=== PATIENT | female | born 1970 | race Caucasian/White ===

== ENCOUNTER 2019-06-11 19:29 | Inpatient (IN) | payer MEDICARE ==
[2019-06-11] MEDS ORDERED: HYDROMORPHONE HCL INJ/PF 2 MG/ML AMPULE IV ONE ×2 (20:15→21:19)
[2019-06-11] MEDS ORDERED: FAMOTIDINE INJ/PF 20 MG/2 ML SDV IV ONE (20:15)
[2019-06-11] MEDS ORDERED: METOCLOPRAMIDE HCL INJ/PF 10 MG/2 ML SDV IV ONE (20:15)
--- NOTE | 2019-06-11 20:21 | ER Document Report ---
ED General - General Chief Complaint: Abdominal Pain Stated Complaint: ABDOMINAL PAIN Time Seen by Provider: 06/11/19 19:58 Mode of Arrival: Medic Information source: Patient, Relative TRAVEL OUTSIDE OF THE [place] IN LAST 30 DAYS: No - HPI Notes: Patient is a 49-year-old female history of kidney transplant 2010, insulin- dependent diabetes, pancreatic cancer diagnosed 2 months ago currently has had 3 rounds of chemotherapy presents to the emergency department with report that she is on vacation coming down from the [place] and forgot her quick-acting oxycodone 30 mg that she usually takes 3 times a day and has had not had anything for 5 days. She is been taking her OxyContin 80 mg that she usually takes 3 times per day but only had one dose today. Other medications that she is on her Pancrease, tacrolimus, prednisone, insulin. The patient reports her abdominal pain worsened and she developed nausea and vomited x1 without diarrhea or hematemesis. She had a bowel movement earlier today which she states was normal. No dysuria. No fever or chest pain or cough or congestion. - Related Data Allergies/Adverse Reactions: No Known Allergies Allergy (Unverified 06/11/19 20:28) Past Medical History - General Information source: Patient, Relative - Social History Smoking Status: Unknown if Ever Smoked Frequency of alcohol use: None Drug Abuse: None Lives with: Family Family History: Reviewed & Not Pertinent Review of Systems - Review of Systems -: Yes All other systems reviewed and negative Physical Exam - Vital signs Vitals: Temp Pulse Resp BP Pulse Ox 98.7 F 94 16 200/83 H 100 06/11/19 19:48 06/11/19 19:48 06/11/19 19:48 06/11/19 19:48 06/11/19 19:48 - Notes Notes: PHYSICAL EXAMINATION: GENERAL: Well-appearing, well-nourished and in obvious discomfort. HEAD: Atraumatic, normocephalic. EYES: Opacified bilat eye legally blind., extraocular movements intact, conjunctiva are normal. ENT: Nares patent, oropharynx clear without exudates. Moist mucous membranes. NECK: Normal range of motion, supple without lymphadenopathy. No meningismus. LUNGS: Breath sounds clear to auscultation bilaterally and equal. No wheezes rales or rhonchi. HEART: Regular rate and rhythm without murmurs ABDOMEN: Soft, nondistended abdomen. No guarding, no rebound. No masses appreciated. Diffusely tender throughout the abdomen more supraumbilical region. No pulsatile mass. No obvious hepatosplenomegaly. Female : deferred Musculoskeletal: Normal range of motion, no pitting or edema. No cyanosis. Patient is status post right BKA. NEUROLOGICAL: Cranial nerves grossly intact. Normal speech, normal gait. Normal sensory, motor exams. Alert and oriented x 3 PSYCH: Normal mood, normal affect. SKIN: Warm, Dry, normal turgor, no rashes or lesions noted. Patient has minimal stage I/II skin breakdown distal aspect of the right BKA region without evidence for infection. She states she has been watching this area which came about related to her weight loss and using her prosthetic limb. No evidence for abscess or cellulitis. Course - Re-evaluation Re-evalutation: 06/11/19 20:20 Patient had received Zofran in route by EMS and had a EKG as interpreted by me showed no evidence for acute ischemia and was normal sinus rhythm heart rate of 90. The patient was given IV Dilaudid and Pepcid. 06/12/19 01:51 Patient remained alert and and interactive and requested something additional for pain. Patient was given additional dose of Dilaudid and was given Reglan for nausea. Immediately after the Reglan, she could not hold still and was dystonic and required restraint. Repeat blood sugar was normal. The patient was given Benadryl IM with some improvement although she still remains somewhat altered. CT scan of the head was ordered. Repeat exam showed her moving all 4 extremities, but she would not consistently follow commands. Patient was given ketamine total of 50 mg for sedation so that she would hold still appropriately for the CT scan. Wet read as interpreted by myself showed no evidence for intracranial hemorrhage. Repeat exam showed patient without dystonia obviously and the patient would respond to verbal stimuli, but was still somnolent and confused. Restraints are being removed. Lactic acid was normal. White blood cell count is elevated, which may be related to patient's chronic steroid use versus her vomiting versus reaction from patient's chemotherapy. Repeat temperatures were normal repeat blood sugar was in the 300s. Patient had mild hyperkalemia with potassium 5.5 with mild ketones in the urine and was given normal saline 1 L. 06/12/19 03:26 Patient was given Valium IV and Cogentin with some further improvement in her dystonia, but she was still somnolent. Repeat blood sugar was 490 and patient was given regular insulin 20 units subcutaneous. Discussion was undertaken with the patient's family and they were in agreement with the patient being watched further with repeat lab work and evaluation. Head CT was negative for acute process and CT scan of the abdomen showed pancreatic cancer findings, which is known history. Discussion was undertaken with Dr. Danielle, Hospitalist, who agreed to admit the patient for further evaluation and care. 06/12/19 04:29 It is again notable that the patient's long-acting oxycodone is usually 240 mg/day where her short acting oxycodone is 90 mg/day. Today she is only had 80 mg of the long-acting oxycodone. 06/12/19 04:32 - Vital Signs Vital signs: Temp Pulse Resp BP Pulse Ox 97.6 F 106 H 20 186/86 H 99 06/12/19 01:30 06/12/19 02:46 06/12/19 02:46 06/12/19 02:46 06/12/19 02:46 - Laboratory Result Diagrams: 06/11/19 19:20 06/11/19 19:20 Laboratory results interpreted by me: 06/11/19 06/11/19 06/11/19 19:20 19:20 20:15 WBC 26.3 H Hgb 10.7 L Hct 33.5 L MCHC 31.8 L RDW 17.2 H Plt Count 505 H Seg Neuts % (Manual) 92 H Lymphocytes % (Manual) 3 L Abs Neuts (Manual) 24.2 H Sodium 136.3 L Potassium 5.5 H BUN 27 H Creatinine 1.38 H Est GFR ( Amer) 49 L Est GFR (MDRD) Non-Af 40 L Glucose 371 H POC Glucose Direct Bilirubin 0.6 H Alkaline Phosphatase 138 H Ammonia Lipase < 10.0 L Urine Protein 100 H Urine Glucose (UA) >=500 H Urine Ketones TRACE H 06/11/19 06/12/19 22:18 02:40 WBC Hgb Hct MCHC RDW Plt Count Seg Neuts % (Manual) Lymphocytes % (Manual) Abs Neuts (Manual) Sodium Potassium BUN Creatinine Est GFR ( Amer) Est GFR (MDRD) Non-Af Glucose POC Glucose 365 H Direct Bilirubin Alkaline Phosphatase Ammonia < 8.7 L Lipase Urine Protein Urine Glucose (UA) Urine Ketones Critical Care Note - Critical Care Note Total time excluding time spent on procedures (mins): 48 Discharge - Discharge Clinical Impression: Dystonic drug reaction, Narcotic withdrawal, Dehydration, Hyperkalemia, Hyperglycemia Pancreatic cancer Qualifiers: Pancreatic malignancy location: unspecified Qualified Code(s): C25.9 - Malign ant neoplasm of pancreas, unspecified Vomiting Qualifiers: Vomiting type: unspecified Vomiting Intractability: non-intractable Nausea presence: with nausea Qualified Code(s): R11.2 - Nausea with vomiting, unspecified Condition: Fair Disposition: ADMITTED INPATIENT Admitting Provider: Shashi (Hospitalist) Unit Admitted: [facility]
[2019-06-11 20:40] LABS: APPEARANCE,URINE CLEAR; BILIRUBIN,URINE NEGATIVE (NEGATIVE); COLOR,URINE STRAW; GLUCOSE, URINE >=500 mg/dL (NEGATIVE); KETONES,URINE TRACE mg/dL (NEGATIVE); LEUKOCYTE ESTERASE,URINE NEGATIVE (NEGATIVE); NITRITE,URINE NEGATIVE (NEGATIVE); PROTEIN,URINE 100 mg/dL (NEGATIVE); UROBILINOGEN,URINE NEGATIVE mg/dL (<2.0)
[2019-06-11 20:48] LABS: HEMATOCRIT 33.5 % (36.0-47.0); HEMOGLOBIN 10.7 g/dL (12.0-15.5); MEAN CORPUSCULAR HEMOGLOBIN 27.3 pg (27.0-33.4); MEAN CORPUSCULAR HGB CONC 31.8 g/dL (32.0-36.0); MEAN CORPUSCULAR VOLUME 86 fl (80-97); PLATELET COUNT 505 10^3/uL (150-450); RED CELL DISTRIBUTION WIDTH 17.2 % (11.5-14.0); WHITE BLOOD COUNT 26.3 10^3/uL (4.0-10.5)
[2019-06-11 20:52] LABS: ALBUMIN 4.3 g/dL (3.5-5.0); ALKALINE PHOSPHATASE 138 U/L (38-126); ANION GAP 13 (5-19); ASPARTATE AMINO TRANSFERASE 14 U/L (14-36); BILIRUBIN,DIRECT 0.6 mg/dL (0.0-0.4); BILIRUBIN,TOTAL 0.7 mg/dL (0.2-1.3); BLOOD UREA NITROGEN 27 mg/dL (7-20); CALCIUM 9.7 mg/dL (8.4-10.2); CARBON DIOXIDE 23 mmol/L (22-30); CHLORIDE 100 mmol/L (98-107); GLUCOSE 371 mg/dL (75-110); POTASSIUM 5.5 mmol/L (3.6-5.0); TOTAL PROTEIN 7.9 g/dL (6.3-8.2)
[2019-06-11 21:17] LABS: ABSOLUTE LYMPHOCYTES# (MANUAL) 0.8 10^3/uL (0.5-4.7); ABSOLUTE MONOCYTES # (MANUAL) 1.3 10^3/uL (0.1-1.4); BASOPHILS % (MANUAL) 0 % (0-2); EOSINOPHILS % (MANUAL) 0 % (0-6); LYMPHOCYTES % (MANUAL) 3 % (13-45); MONOCYTES % (MANUAL) 5 % (3-13); SEGMENTED NEUTROPHILS % (MAN) 92 % (42-78); TOTAL CELLS COUNTED 100
[2019-06-11] MEDS ORDERED: NORMAL SALINE 1000 ML 1,000 ML IV ONE (21:17)
[2019-06-11 21:19] LABS: ANISOCYTOSIS 1+; OVALOCYTES SLIGHT; PLATELET COMMENT INCREASED; POIKILOCYTOSIS SLIGHT; SCHISTOCYTES SLIGHT
[2019-06-11] MEDS ORDERED: LORAZEPAM INJ 2 MG/1 ML VIAL IV ONE (21:19)
[2019-06-11] MEDS ORDERED: DIPHENHYDRAMINE HCL 50 MG/ML VIAL IM ONE (23:24)
[2019-06-11] MEDS ORDERED: DIPHENHYDRAMINE HCL 50 MG/ML VIAL ONE (23:25)
[2019-06-12] MEDS ORDERED: KETAMINE HCL INJ 500 MG/10 ML VIAL IV ONE ×2 (01:49→02:26)
[2019-06-12] MEDS ORDERED: KETAMINE HCL INJ 500 MG/10 ML VIAL ONE (02:23)
--- NOTE | 2019-06-12 02:56 | RADIOLOGY REPORT (SQ) ---
EXAM DESCRIPTION: RadLex: CT HEAD WITHOUT IV CONTRAST CLINICAL HISTORY: 49 years Female; altered mental state TECHNIQUE: Noncontrast CT head. All CT scans at this facility use dose modulation, iterative reconstruction, and/or weight based dosing when appropriate to reduce radiation dose to as low as reasonably achievable. COMPARISON: None. FINDINGS: No acute hemorrhage or mass effect. A calcified lesion extends along the posterior aspect of the cribriform plate, extending over the pituitary fossa. Estimated size is 2.4 cm AP by 1.7 cm LR by 0.9 cm SI. Vascular calcifications are seen along the distal internal carotid arteries bilaterally. Large coarse calcifications are seen in both globes. No acute retro-orbital edema. Visualized portions of paranasal sinuses and mastoids are clear. Visualized portions of the calvarium are within normal limits. IMPRESSION: 1. No acute hemorrhage or mass effect. 2. Calcified lesion extending from the cribriform plate over the pituitary fossa. This is likely a calcified meningioma. Based on location could potentially affect pituitary function. MRI brain with and without contrast using pituitary protocol would provide better evaluation of this lesion and any potential mass effect on the pituitary stalk/gland. 3. Atherosclerotic plaque in the distal internal carotid arteries bilaterally 4. Coarse calcifications in both globes.
--- NOTE | 2019-06-12 03:15 | RADIOLOGY REPORT (SQ) ---
EXAM DESCRIPTION: CT ABDOMEN PELVIS WITHOUT IV CONTRAST COMPLETED DATE/TME: 06/12/2019 00:00 CLINICAL HISTORY: 49 years, Female, abd pain, hx renal transplant and pancreatic cancer COMPARISON: None. TECHNIQUE: Axial CT images of the abdomen and pelvis were obtained without contrast. Sagittal and coronal reformats were performed. DLP 608 Images stored on PACS. All CT scanners at this facility use dose modulation, iterative reconstruction, and/or weight based dosing when appropriate to reduce radiation dose to as low as reasonably achievable (ALARA). [facility]: Dose Right [facility]: CareDose [facility]: Dose Right [facility]: Teradose 4D [facility]: Smart Retrace LIMITATIONS: None. FINDINGS: The lung bases are clear. The liver appears unremarkable. The gallbladder appears distended. There is fullness along the pancreatic head and body with minimal adjacent stranding, consistent with the patient's known history of malignancy. The pancreatic tail appears atrophic. The spleen and adrenal glands appear unremarkable. Both [place] kidneys appear atrophic with vascular calcifications. There is no hydronephrosis. The transplant kidney is in the right lower quadrant. There is no perinephric fluid collection or hydronephrosis. There are atherosclerotic calcific effusions of the abdominal aorta without evidence of aneurysm. There is a small amount of free fluid within the pelvis. There is no free air. The stomach and small bowel appear unremarkable. The appendix is normal. There is a large amount of stool within the colon. The urinary bladder and uterus appear unremarkable. No pathologically enlarged lymph nodes are detected on this noncontrast exam. There are prominent subcentimeter lymph nodes along the upper abdomen. IMPRESSION: Fullness of the pancreatic head and body with minimal adjacent stranding, likely related to the patient's known history of pancreatic malignancy. Pancreatitis may be present. Recommend correlation with amylase and lipase. Mildly distended gallbladder. If there is concern for acute cholecystitis, an ultrasound may be useful in further evaluation. Right lower quadrant transplant kidney with no perinephric fluid collection or hydronephrosis. TECHNICAL DOCUMENTATION: Quality ID # 436: Final reports with documentation of one or more dose reduction techniques (e.g., Automated exposure control, adjustment of the mA and/or kV according to patient size, use of iterative reconstruction technique) copyright 2011 [employer] All Rights Reserved
[2019-06-12] MEDS ORDERED: INSULIN REG, HUMAN 100 UNIT/ML 3 ML VIAL (PYX) SUBCUT ONE (04:00)
[2019-06-12] MEDS ORDERED: DIAZEPAM INJ 10 MG/2 ML DISP.SYRIN IV ONE (04:00)
[2019-06-12] MEDS ORDERED: BENZTROPINE MESYLATE INJ 2 MG/2 ML AMPULE IV ONE (04:10)
[2019-06-12] MEDS ORDERED: MAG HYDROX/AL HYDROX/SIMETH SUSP 30 ML UDCUP PO PRN (04:44)
[2019-06-12] MEDS ORDERED: NORMAL SALINE 1000 ML 1,000 ML IV PRN (04:44)
[2019-06-12] MEDS ORDERED: ONDANSETRON HCL INJ/PF 4 MG/2 ML SDV IV PRN (04:44)
[2019-06-12] MEDS ORDERED: MAGNESIUM HYDROXIDE SUSP 30 ML UDCUP PO PRN (04:44)
[2019-06-12] MEDS ORDERED: GLUCAGON,HUMAN RECOMB 1 MG INJ IM PRN (04:52)
[2019-06-12] MEDS ORDERED: DEXTROSE 40% GEL 15 GM TUBE PO PRN ×2 (04:52)
[2019-06-12] MEDS ORDERED: ACETAMINOPHEN 325 MG TABLET PO PRN (04:52)
[2019-06-12] MEDS ORDERED: DEXTROSE 50%-WATER 25 GM/50 ML DISP.SYRIN IV PRN ×2 (04:52)
--- NOTE | 2019-06-12 05:57 | PDOC H&P ---
History of Present Illness Admission Date/PCP: 06/12/2019 04:31 No local PCP Patient complains of: Abdominal pain History of Present Illness: NISHA CLARKE is a 49 year old female who presented to the emergency room with acutely worsening abdominal pain. Patient admits having chronic abdominal pain secondary to pancreatic cancer which was diagnosed 2 months ago. Her pain has worsened acutely since leaving her home in the [place] and coming to the [place] area on vacation and forgetting her short acting pain medication at home. She normally takes OxyContin 80 mg 3 times daily and oxycodone IR 30 mg 3 times a day but she has had no IR formulation available to her for the last 5 days and only took 1 dose of her OxyContin yesterday. Therefore yesterday afternoon she developed gradually worsening abdominal pain and nausea with vomiting x1. She describes the pain as a severe, constant deep gripping/aching upper abdominal pain radiating through to her back. With these symptoms she presented to the emergency room for evaluation and treatment. In the emergency room patient was treated with IV fluid and was given Dilaudid as well as Zofran for pain and nausea. She responded well to treatment initially but over time asked for more pain medication. She was given another dose of Dilaudid but was given Reglan 5 mg IV instead of Zofran. Within a few minutes of receiving Reg vanessa she developed a dystonic reaction and has not recovered from the dystonic reaction since that time although it was slightly improved by the administration of Benadryl. Her ER evaluation revealed a mildly elevated serum potassium, hyperglycemia mildly elevated renal functions. Because the patient has not responded well to attempts at resolving her dystonic reaction the hospital service is been asked to admit patient for further treatment. Past Medical History Past Medical History: Due to patient's dystonic reaction information was obtained from her relatives who accompanied her. 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 Denies: Nose - Allergic rhinitis Neurological Medical History: Denies: Hemorrhagic CVA, Ischemic CVA, Seizures Endocrine Medical History: Reports: Diabetes Mellitus Type 2 Denies: Diabetes Mellitus Type 1, Hyperthyroidism, Hypothyroidism Renal/ Medical History: Denies: Chronic Kidney Disease, Nephrolithiasis Malignancy Medical History: Reports: Pancreatic Cancer GI Medical History: Denies: Cirrhosis, Crohn's Disease, Hepatitis, Ulcerative Colitis Musculoskeltal Medical History: Denies: Arthritis, Fibromyalgia Skin Medical History: Denies: Eczema, Psoriasis Psychiatric Medical History: Reports: Tobacco Dependency Denies: Alcohol Dependency, Substance Abuse Traumatic Medical History: Reports: None Hematology: Denies: Anemia, Bleeding Tendencies Infectious Medical History: Reports: None Past Surgical History Past Surgical History: Reports: 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 ABSE NT: constipation, diarrhea Genitourinary: ABSENT: dysuria, hematuria Musculoskeletal: ABSENT: back pain, joint swelling Integumentary: ABSENT: pruritus, rash Neurological: ABSENT: confusion, convulsions, focal weakness, memory loss, syncope Psychiatric: ABSENT: anxiety, depression Endocrine: ABSENT: cold intolerance, heat intolerance Hematologic/Lymphatic: ABSENT: easy bleeding, easy bruising Allergic/Immunologic: ABSENT: seasonal rhinorrhea Physical Exam Vital Signs: Temp Pulse Resp BP Pulse Ox 97.6 F 106 H 20 186/86 H 99 06/12/19 01:30 06/12/19 02:46 06/12/19 02:46 06/12/19 02:46 06/12/19 02:46 Intake & Output 06/10/19 06/11/19 06/12/19 23:59 23:59 23:59 Weight 66.8 kg General appearance: PRESENT: mild distress - Secondary to dystonia, other - Dystonic movements noted Head exam: PRESENT: atraumatic, normocephalic, other - Hair loss consistent with recent chemotherapy Eye exam: PRESENT: conjunctiva pink. ABSENT: conjunctival injection, scleral icterus Ear exam: PRESENT: normal external ear exam. ABSENT: bleeding, drainage Mouth exam: PRESENT: dry mucosa, neck supple Neck exam: ABSENT: thyromegaly, tracheal deviation Respiratory exam: PRESENT: clear to auscultation cecile, symmetrical, unlabored Cardiovascular exam: PRESENT: RRR. ABSENT: clicks, gallop, rubs Pulses: PRESENT: normal carotid pulses, normal radial pulses Vascular exam: PRESENT: normal capillary refill, pallor - Mild pallor noted GI/Abdominal exam: PRESENT: normal bowel sounds, soft Rectal exam: PRESENT: deferred Extremities exam: ABSENT: joint swelling, pedal edema Musculoskeletal exam: ABSENT: deformity, dislocation Neurological exam: PRESENT: altered - Not verbally responsive, does not follow commands, other - Dystonic movements noted Psychiatric exam: PRESENT: agitated, other - Dystonic movements and reaction Skin exam: PRESENT: dry, intact, warm. ABSENT: jaundice, rash, urticaria Results Laboratory Results: 06/11/19 19:20 06/11/19 19:20 06/11/19 06/11/19 06/11/19 19:20 19:20 19:20 WBC 26.3 H RBC 3.90 Hgb 10.7 L Hct 33.5 L MCV 86 MCH 27.3 MCHC 31.8 L RDW 17.2 H Plt Count 505 H Seg Neutrophils % Not Reportable Sodium 136.3 L Potassium 5.5 H Chloride 100 Carbon Dioxide 23 Anion Gap 13 BUN 27 H Creatinine 1.38 H Est GFR ( Amer) 49 L Glucose 371 H Lactic Acid Calcium 9.7 Total Bilirubin 0.7 AST 14 Alkaline Phosphatase 138 H Ammonia Total Protein 7.9 Albumin 4.3 Amylase 48 Lipase < 10.0 L Urine Color Urine Appearance Urine pH Ur Specific [place] Urine Protein Urine Glucose (UA) Urine Ketones Urine Blood Urine Nitrite Ur Leukocyte Esterase Urine WBC (Auto) Urine RBC (Auto) 06/11/19 06/11/19 06/12/19 20:15 22:21 02:40 WBC RBC Hgb Hct MCV MCH MCHC RDW Plt Count Seg Neutrophils % Sodium Potassium Chloride Carbon Dioxide Anion Gap BUN Creatinine Est GFR ( Amer) Glucose Lactic Acid 1.1 Calcium Total Bilirubin AST Alkaline Phosphatase Ammonia < 8.7 L Total Protein Albumin Amylase Lipase Urine Color STRAW Urine Appearance CLEAR Urine pH 6.0 Ur Specific [place] 1.010 Urine Protein 100 H Urine Glucose (UA) >=500 H Urine Ketones TRACE H Urine Blood NEGATIVE Urine Nitrite NEGATIVE Ur Leukocyte Esterase NEGATIVE Urine WBC (Auto) 1 Urine RBC (Auto) 2 Impressions: Abdomen/Pelvis CT 06/12/19 00:00 IMPRESSION: Fullness of the pancreatic head and body with minimal adjacent stranding, likely related to the patient's known history of pancreatic malignancy. Pancreatitis may be present. Recommend correlation with amylase and lipase. Mildly distended gallbladder. If there is concern for acute cholecystitis, an ultrasound may be useful in further evaluation. Right lower quadrant transplant kidney with no perinephric fluid collection or hydronephrosis. TECHNICAL DOCUMENTATION: Quality ID # 436: Final reports with documentation of one or more dose reduction techniques (e.g., Automated exposure control, adjustment of the mA and/or kV according to patient size, use of iterative reconstruction technique) copyright 2011 [employer]- All Rights Reserved Head CT 06/12/19 01:50 IMPRESSION: 1. No acute hemorrhage or mass effect. 2. Calcified lesion extending from the cribriform plate over the pituitary fossa. This is likely a calcified meningioma. Based on location could potentially affect pituitary function. MRI brain with and without contrast using pituitary protocol would provide better evaluation of this lesion and any potential mass effect on the pituitary stalk/gland. 3. Atherosclerotic plaque in the distal internal carotid arteries bilaterally 4. Coarse calcifications in both globes. Assessment and Plan - Diagnosis (1) Dystonic drug reaction Is this a current diagnosis for this admission?: Yes Plan: Patient's dystonic reaction will be treated with Cogentin and IV fluids with observation on IMCU. (2) Renal insufficiency Is this a current diagnosis for this admission?: Yes Plan: Patient's renal insufficiency will be treated with IV fluids and observation of her repeat metabolic profile. (3) Abdominal pain Qualifiers: Abdominal location: upper abdomen, unspecified Qualified Code(s): R10.10 - Upper abdominal pain, unspecified Is this a current diagnosis for this admission?: Yes Plan: Patient's abdominal pain will be treated with IV Dilaudid 0.5 to 4 mg every 2 hours on a as needed basis using a sliding pain scale. Patient can be converted back to oral therapy when she is fully awake and alert prior to discharge. (4) Nausea and vomiting Qualifiers: Vomiting type: unspecified Vomiting Intractability: non-intractable Qualified Code(s): R11.2 - Nausea with vomiting, unspecified Is this a current diagnosis for this admission?: Yes Plan: Patient's nausea and vomiting be treated with Zofran 8 mg IV every 6 hours on a as needed basis. For the use of Reglan other similar agents (Compazine) should be avoided. (5) Diabetes type 2, uncontrolled Qualifiers: Glycemic state: with hyperglycemia Qualified Code(s): E11.65 - Type 2 diabetes mellitus with hyperglycemia Is this a current diagnosis for this admission?: Yes Plan: Patient's diabetes will be treated with before meals and at bedtime Accu-Cheks and a sliding scale insulin schedule for hyperglycemia and a hypoglycemic protocol as needed. She can be returned to her usual therapeutic regiment as soon as she is able to be fully awake and alert and take an oral diet. (6) Hyperkalemia Is this a current diagnosis for this admission?: Yes Plan: Patient's hyperkalemia has been treated with IV fluids and will be observed with a repeat metabolic profile. Further intervention will be undertaken as required. - Time Time Spent with patient: 25-34 minutes Anticipated discharge: Home - Inpatient Certification Based on my medical assessment, after consideration of the patient's comorbidities, presenting symptoms, or acuity I expect that the services needed warrant INPATIENT care.: No I certify that my determination is in accordance with my understanding of Medicare's requirements for reasonable and necessary INPATIENT services [42 CFR 412.3e].: No Medical Necessity: Need Close Monitoring Due to Risk of Patient Decompensation, Need For IV Fluids, Need For Continuous Telemetry Monitoring, Need for Neurological Checks, Need for Pain Control, Risk of Complication if Not Cared For in Hospital
[2019-06-12] MEDS ORDERED: NICOTINE 21 MG/24 HR PATCH.TD24 TD PRN (06:17)
[2019-06-12] MEDS: HEPARIN SOD (PORCINE) 5,000 UNIT/ML 1 ML VIAL SUBCUT SCH ×3 (08:48→22:22)
[2019-06-12] MEDS ORDERED: HYDRALAZINE HCL INJ/PF 20 MG/1 ML SDV IV PRN (08:59)
[2019-06-12] MEDS ORDERED: DIPHENHYDRAMINE HCL 50 MG/ML VIAL IV ONE ×2 (09:33→18:45)
[2019-06-12] MEDS ORDERED: NORMAL SALINE 1000 ML 1,000 ML IV ONE (09:34)
[2019-06-12 10:05] LABS: ANION GAP 17 (5-19); BLOOD UREA NITROGEN 27 mg/dL (7-20); CARBON DIOXIDE 18 mmol/L (22-30); CHLORIDE 107 mmol/L (98-107); GLUCOSE 259 mg/dL (75-110); POTASSIUM 4.7 mmol/L (3.6-5.0)
[2019-06-12] MEDS: BENZTROPINE MESYLATE 1 MG TABLET PO SCH ×2 (10:57→17:42)
[2019-06-12] MEDS: DOCUSATE SODIUM 100 MG CAPSULE PO SCH ×2 (10:58→17:42)
[2019-06-12] MEDS: FAMOTIDINE 20 MG TABLET PO SCH ×2 (10:58→22:10)
[2019-06-12] MEDS: NORMAL SALINE 1000 ML 1,000 ML IV PRN ×2 (13:24→18:47)
[2019-06-12] MEDS ORDERED: OXYCODONE HCL 30 MG PO PRN (15:23)
[2019-06-12] MEDS ORDERED: OXYCODONE HCL 80 MG PO PRN (15:23)
[2019-06-12] MEDS ORDERED: (PENDING PHARMACY ID) (Oxycodone Hcl [Oxycodone Hcl] 30 MG) PO PRN (15:59)
[2019-06-12] MEDS ORDERED: AMYLASE PO SCH (16:00)
[2019-06-12] MEDS ORDERED: LIPASE PO SCH (16:00)
[2019-06-12] MEDS ORDERED: MORPHINE SULFATE 10 MG/ML INJ IV ONE (16:00)
[2019-06-12] MEDS ORDERED: BENZTROPINE MESYLATE INJ 2 MG/2 ML AMPULE IM ONE (16:00)
[2019-06-12] MEDS ORDERED: PROTEASE PO SCH (16:00)
[2019-06-12] MEDS ORDERED: OXYCODONE HCL IR 5 MG TABLET PO PRN (16:01)
--- NOTE | 2019-06-12 17:42 | PDOC CONSULTATION ---
Consultation Consult Date: 06/12/19 Attending physician:: LANNY MCCARTHY Provider Consulted: FLORENCIA STARKS Consult reason:: Pancreatic cancer History of Present Illness Admission Date/PCP: 06/12/19 13:17 Patient complains of: Pancreatic cancer History of Present Illness: NISHA CLARKE is a 49 year old female with known history of pancreatic cancer, all the history was obtained from notes or from nursing information because unfortunately patient is completely confused and noncommunicative, and family is not at bedside. She apparently just traveled down with her daughter here on a bus from [facility]. She was previously on chemotherapy but decided to stop all therapy because of side effects. She does have history of pancreatic cancer probably pancreatic head carcinoma. Recent CT imaging shows just that. Apparently she was coming to visit family here. She apparently ran out of medication and was in severe pain came to the ED and got several different medications including Reglan, and ultimately had some dysarthria as after that, and over the last 24 hours seems to have been very confused, she has restraints currently, and has a sitter. Per nursing she has not had any appropriate conversation and seems agitated. 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 Denies: Nose - Allergic rhinitis Neurological Medical History: Denies: Hemorrhagic CVA, Ischemic CVA, Seizures Endocrine Medical History: Reports: Diabetes Mellitus Type 2 Denies: Diabetes Mellitus Type 1, Hyperthyroidism, Hypothyroidism Renal/ Medical History: Denies: Chronic Kidney Disease, Nephrolithiasis Malignancy Medical History: Reports: Pancreatic Cancer GI Medical History: Denies: Cirrhosis, Crohn's Disease, Hepatitis, Ulcerative Colitis Musculoskeltal Medical History: Denies: Arthritis, Fibromyalgia Skin Medical History: Denies: Eczema, Psoriasis Psychiatric Medical History: Reports: Tobacco Dependency Denies: Alcohol Dependency, Substance Abuse Traumatic Medical History: Reports: None Hematology: Denies: Anemia, Bleeding Tendencies Infectious Medical History: Reports: None Past Surgical History Past Surgical History: Reports: 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 denies: CAD Parental Family History Reviewed: Yes Children Family History Reviewed: Yes Sibling(s) Family History Reviewed.: Yes Medication/Allergy Home Medications: Aspirin [Adult Low Dose Aspirin EC] 81 mg PO QHS 06/12/19 Lipase/Protease/Amylase [Creon Dr 36,000 Units Capsule] 1 each PO AC 06/12/19 Oxycodone HCl 30 mg PO Q4HP PRN 06/12/19 Oxycodone HCl [Oxycontin] 80 mg PO Q8 06/12/19 Pantoprazole Sodium [Protonix [address] Tablet] 40 mg PO DAILY 06/12/19 Prednisone [Deltasone 5 mg Tablet] 5 mg PO QAM 06/12/19 Pregabalin [Lyrica 25 Mg Capsule] 25 mg PO Q12 06/12/19 Sennosides [Senna] 8.6 mg PO DAILY 06/12/19 Tacrolimus [Prograf] 3 mg PO Q12 06/12/19 Allergies/Adverse Reactions: metoclopramide [From Reglan] Allergy (Severe, Verified 06/12/19 04:30) Abnormal behavior Review of Systems ROS unobtainable: Due to mental status Physical Exam Vital Signs: Temp Pulse Resp BP Pulse Ox 98.0 F 103 H 16 179/73 H 100 06/12/19 11:50 06/12/19 11:50 06/12/19 11:50 06/12/19 11:50 06/12/19 11:50 Intake & Output 06/11/19 06/12/19 06/13/19 06:59 06:59 06:59 Intake Total 267 1000 Balance 267 1000 Weight 67.1 kg General appearance: PRESENT: disheveled Mouth exam: PRESENT: dry mucosa Respiratory exam: PRESENT: clear to auscultation cecile. ABSENT: rales, rhonchi, wheezes Cardiovascular exam: PRESENT: RRR. ABSENT: diastolic murmur, rubs, systolic murmur GI/Abdominal exam: PRESENT: normal bowel sounds, soft. ABSENT: distended, guarding, mass, organolmegaly, rebound, tenderness Rectal exam: PRESENT: deferred Neurological exam: PRESENT: altered Psychiatric exam: PRESENT: agitated Results Laboratory Results: 06/11/19 19:20 06/12/19 07:25 06/11/19 06/11/19 06/11/19 19:20 19:20 19:20 WBC 26.3 H RBC 3.90 Hgb 10.7 L Hct 33.5 L MCV 86 MCH 27.3 MCHC 31.8 L RDW 17.2 H Plt Count 505 H Seg Neutrophils % Not Reportable Sodium 136.3 L Potassium 5.5 H Chloride 100 Carbon Dioxide 23 Anion Gap 13 BUN 27 H Creatinine 1.38 H Est GFR ( Amer) 49 L Glucose 371 H Lactic Acid Calcium 9.7 Total Bilirubin 0.7 AST 14 Alkaline Phosphatase 138 H Ammonia Total Protein 7.9 Albumin 4.3 Amylase 48 Lipase < 10.0 L Urine Color Urine Appearance Urine pH Ur Specific Garita Urine Protein Urine Glucose (UA) Urine Ketones Urine Blood Urine Nitrite Ur Leukocyte Esterase Urine WBC (Auto) Urine RBC (Auto) 06/11/19 06/11/19 06/12/19 20:15 22:21 02:40 WBC RBC Hgb Hct MCV MCH MCHC RDW Plt Count Seg Neutrophils % Sodium Potassium Chloride Carbon Dioxide Anion Gap BUN Creatinine Est GFR ( Amer) Glucose Lactic Acid 1.1 Calcium Total Bilirubin AST Alkaline Phosphatase Ammonia < 8.7 L Total Protein Albumin Amylase Lipase Urine Color STRAW Urine Appearance CLEAR Urine pH 6.0 Ur Specific Garita 1.010 Urine Protein 100 H Urine Glucose (UA) >=500 H Urine Ketones TRACE H Urine Blood NEGATIVE Urine Nitrite NEGATIVE Ur Leukocyte Esterase NEGATIVE Urine WBC (Auto) 1 Urine RBC (Auto) 2 06/12/19 07:25 WBC RBC Hgb Hct MCV MCH MCHC RDW Plt Count Seg Neutrophils % Sodium 141.7 Potassium 4.7 Chloride 107 Carbon Dioxide 18 L Anion Gap 17 BUN 27 H Creatinine 1.37 H Est GFR ( Amer) 49 L Glucose 259 H Lactic Acid Calcium 10.0 Total Bilirubin AST Alkaline Phosphatase Ammonia Total Protein Albumin Amylase Lipase Urine Color Urine Appearance Urine pH Ur Specific Garita Urine Protein Urine Glucose (UA) Urine Ketones Urine Blood Urine Nitrite Ur Leukocyte Esterase Urine WBC (Auto) Urine RBC (Auto) Impressions: Abdomen/Pelvis CT 06/12/19 00:00 IMPRESSION: Fullness of the pancreatic head and body with minimal adjacent stranding, likely related to the patient's known history of pancreatic malignancy. Pancreatitis may be present. Recommend correlation with amylase and lipase. Mildly distended gallbladder. If there is concern for acute cholecystitis, an ultrasound may be useful in further evaluation. Right lower quadrant transplant kidney with no perinephric fluid collection or hydronephrosis. TECHNICAL DOCUMENTATION: Quality ID # 436: Final reports with documentation of one or more dose reduction techniques (e.g., Automated exposure control, adjustment of the mA and/or kV according to patient size, use of iterative reconstruction technique) copyright 2011 [employer]- All Rights Reserved Head CT 06/12/19 01:50 IMPRESSION: 1. No acute hemorrhage or mass effect. 2. Calcified lesion extending from the cribriform plate over the pituitary fossa. This is likely a calcified meningioma. Based on location could potentially affect pituitary function. MRI brain with and without contrast using pituitary protocol would provide better evaluation of this lesion and any potential mass effect on the pituitary stalk/gland. 3. Atherosclerotic plaque in the distal internal carotid arteries bilaterally 4. Coarse calcifications in both globes. Status: Image reviewed by me Assessment & Plan - Diagnosis (1) Pancreatic cancer Qualifiers: Pancreatic malignancy location: head of pancreas Qualified Code(s): C25.0 - Malignant neoplasm of head of pancreas Is this a current diagnosis for this admission?: Yes Plan: I have written for community fundraiser to try to get records from [place]. But per nursing and records it seems that the patient does not want further therapy for the pancreatic cancer. In terms of pain control, she probably has some level withdrawal but unsure of whether we should initiate opiates again. At present would watch another 24 hours to see how patient does and if patient is still confused she may need further imaging of the brain with brain MRI to see if there is something going on there. Ultimately, we may need family to decide on whether to consider comfort care only going forward. - Time Time Spent: Greater than 70 Minutes
--- NOTE | 2019-06-12 18:52 | EKG REPORT ---
SEVERITY:- ABNORMAL ECG - SINUS TACHYCARDIA LEFT ATRIAL ABNORMALITY IVCD, CONSIDER ATYPICAL RBBB INFERIOR INFARCT, AGE INDETERMINATE ANTEROLATERAL INFARCT, RECENT : Confirmed by: Vel Stewart MD 12-Jun-2019 18:52:25
--- NOTE | 2019-06-12 19:33 | Progress Note ---
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 The patient was admitted early this morning by the falafel cart cook. Vital signs, laboratory and imaging evaluation, and orders reviewed. Agree with the plan of care as established by the falafel cart cook this morning. In addition, oncology is consulted; appreciate Dr. Banks's assistance. Patient remains altered and has not been taking p.o. medications, therefore, have provided IV Benadryl and Cogentin today. Start fall, aspiration, seizure precautions. If mental status is not improved in the morning, will proceed with contrasted head MRI and further evaluation for potential infectious causes of her encephalopathy.
[2019-06-12] MEDS: HYDROMORPHONE HCL INJ/PF 2 MG/ML AMPULE IV PRN (20:50)
[2019-06-12] MEDS ORDERED: LORAZEPAM INJ 2 MG/1 ML VIAL ONE (21:01)
[2019-06-12] MEDS ORDERED: NALOXONE HCL INJ/PF 0.4 MG/1 ML SDV ONE (21:40)
[2019-06-12] MEDS ORDERED: TACROLIMUS ANHYDROUS 1 MG CAPSULE PO SCH (22:00)
[2019-06-12] MEDS ORDERED: ASPIRIN 81 MG TABLET, ENT COATED PO SCH (22:00)
[2019-06-12] MEDS ORDERED: PREGABALIN 25 MG CAPSULE PO SCH (22:00)
[2019-06-12] MEDS: OXYCODONE HCL SR 40 MG TABLET PO SCH (22:09)
[2019-06-12] MEDS: INSULIN REG, HUMAN 100 UNIT/ML 3 ML VIAL (PYX) SUBCUT PRN (22:21)
[2019-06-12 22:35] LABS: ARTERIAL BLOOD BASE EXCESS 5.7 mmol/L; ARTERIAL BLOOD FIO2 21%; ARTERIAL BLOOD HCO3 28.5 mmol/L (20-24); ARTERIAL BLOOD O2 SATURATION 71.6 % (94-98); ARTERIAL BLOOD PCO2 33.3 mmHg (35-45); ARTERIAL BLOOD PH 7.55 (7.35-7.45); ARTERIAL BLOOD PO2 32.4 mmHg (80-100); ARTERIAL BLOOD TOTAL CO2 29.6 mmol/L (21-25)
[2019-06-12 23:07] LABS: ARTERIAL BLOOD BASE EXCESS -13.3 mmol/L; ARTERIAL BLOOD H2CO3 0.64 mmol/L (1.05-1.35); ARTERIAL BLOOD HCO3 10.8 mmol/L (20-24); ARTERIAL BLOOD PCO2 21.4 mmHg (35-45); ARTERIAL BLOOD PH 7.32 (7.35-7.45); ARTERIAL BLOOD PO2 95.4 mmHg (80-100); ARTERIAL BLOOD TOTAL CO2 11.5 mmol/L (21-25)
[2019-06-12 23:09] LABS: ARTERIAL BLOOD FIO2 ROOM AIR
[2019-06-12] MEDS ORDERED: LORAZEPAM INJ 2 MG/1 ML VIAL IV ONE (23:30)
[2019-06-13] MEDS: OXYCODONE HCL SR 40 MG TABLET PO SCH (05:44)
[2019-06-13] MEDS: HEPARIN SOD (PORCINE) 5,000 UNIT/ML 1 ML VIAL SUBCUT SCH (05:46)
[2019-06-13] MEDS: NORMAL SALINE 1000 ML 1,000 ML IV PRN ×2 (05:53→17:32)
[2019-06-13] MEDS: HYDROMORPHONE HCL INJ/PF 2 MG/ML AMPULE IV PRN ×5 (05:55→21:00)
[2019-06-13] MEDS ORDERED: PREDNISONE 5 MG TABLET PO SCH (08:00)
[2019-06-13] MEDS ORDERED: FENTANYL 100 MCG/HR PATCH.TD72 TD ONE (08:23)
--- NOTE | 2019-06-13 08:48 | PDOC PROGRESS REPORT ---
Subjective Progress Note for:: 06/13/19 Subjective:: Patient is still very confused, was even mor agitated yesterday,e now in three- point restraints, she was given Ativan because of the agitation and unfortunately went unresponsive for a while and [facility] was called. Family would like to talk to provider, I discussed her case with Cristal Adams who will be talking with them today. Reason For Visit: METABOLIC TOXIC ENCEPHALOPATHY Physical Exam Vital Signs: Temp Pulse Resp BP Pulse Ox 98.1 F 120 H 28 H 166/88 H 100 06/13/19 03:19 06/13/19 07:00 06/13/19 03:19 06/13/19 03:19 06/13/19 03:19 Intake & Output 06/12/19 06/13/19 06/14/19 06:59 06:59 06:59 Intake Total 267 3807 Output Total 3775 Balance 267 32 Weight 67.1 kg 69.2 kg General appearance: PRESENT: no acute distress, well-developed, well-nourished Head exam: PRESENT: atraumatic, normocephalic Eye exam: PRESENT: conjunctiva pink, EOMI, PERRLA. ABSENT: scleral icterus Ear exam: PRESENT: normal external ear exam Mouth exam: PRESENT: moist, tongue midline Neck exam: ABSENT: carotid bruit, JVD, lymphadenopathy, thyromegaly Respiratory exam: PRESENT: clear to auscultation cecile. ABSENT: rales, rhonchi, wheezes Cardiovascular exam: PRESENT: RRR. ABSENT: diastolic murmur, rubs, systolic murmur Pulses: PRESENT: normal dorsalis pedis pul Vascular exam: PRESENT: normal capillary refill GI/Abdominal exam: PRESENT: normal bowel sounds, soft. ABSENT: distended, guarding, mass, organolmegaly, rebound, tenderness Rectal exam: PRESENT: deferred Extremities exam: PRESENT: full ROM. ABSENT: calf tenderness, clubbing, pedal edema Neurological exam: PRESENT: alert, awake, oriented to person, oriented to place, oriented to time, oriented to situation, CN II-XII grossly intact. ABSENT: motor sensory deficit Psychiatric exam: PRESENT: appropriate affect, normal mood. ABSENT: homicidal ideation, suicidal ideation Skin exam: PRESENT: dry, intact, warm. ABSENT: cyanosis, rash Results Laboratory Results: 06/11/19 19:20 06/12/19 07:25 06/12/19 06/12/19 06/12/19 07:25 21:55 22:52 Carbonic Acid 1.00 L 0.64 L HCO3/H2CO3 Ratio 28:1 16:1 ABG pH 7.55 H 7.32 L ABG pCO2 33.3 L 21.4 L ABG pO2 32.4 L* 95.4 ABG HCO3 28.5 H 10.8 L ABG O2 Saturation 71.6 L 97.0 ABG Base Excess 5.7 -13.3 FiO2 21% ROOM AIR Sodium 141.7 Potassium 4.7 Chloride 107 Carbon Dioxide 18 L Anion Gap 17 BUN 27 H Creatinine 1.37 H Est GFR ( Amer) 49 L Glucose 259 H Calcium 10.0 Impressions: Abdomen/Pelvis CT 06/12/19 00:00 IMPRESSION: Fullness of the pancreatic head and body with minimal adjacent stranding, likely related to the patient's known history of pancreatic malignancy. Pancreatitis may be present. Recommend correlation with amylase and lipase. Mildly distended gallbladder. If there is concern for acute cholecystitis, an ultrasound may be useful in further evaluation. Right lower quadrant transplant kidney with no perinephric fluid collection or hydronephrosis. TECHNICAL DOCUMENTATION: Quality ID # 436: Final reports with documentation of one or more dose reduction techniques (e.g., Automated exposure control, adjustment of the mA and/or kV according to patient size, use of iterative reconstruction technique) copyright 2011 [employer]- All Rights Reserved Head CT 06/12/19 01:50 IMPRESSION: 1. No acute hemorrhage or mass effect. 2. Calcified lesion extending from the cribriform plate over the pituitary fossa. This is likely a calcified meningioma. Based on location could potentially affect pituitary function. MRI brain with and without contrast using pituitary protocol would provide better evaluation of this lesion and any potential mass effect on the pituitary stalk/gland. 3. Atherosclerotic plaque in the distal internal carotid arteries bilaterally 4. Coarse calcifications in both globes. Assessment & Plan - Diagnosis (1) Pancreatic cancer Qualifiers: Pancreatic malignancy location: head of pancreas Qualified Code(s): C25.0 - Malignant neoplasm of head of pancreas Is this a current diagnosis for this admission?: Yes Plan: Not further candidate for treatment, hospitalist team will talk with family today, will have to make decisions on next steps of care. With mental status c hanges it would be reasonable for MRI of the brain but unfortunately she is very agitated and if we do sedate her she may get lethargic enough to require some sort of respiratory support. We need to see what family's desires on this are.
[2019-06-13] MEDS: PANTOPRAZOLE SODIUM 40 MG TABLET.DR PO SCH (09:13)
[2019-06-13 10:19] LABS: HEMATOCRIT 32.9 % (36.0-47.0); HEMOGLOBIN 10.3 g/dL (12.0-15.5); MEAN CORPUSCULAR HEMOGLOBIN 27.4 pg (27.0-33.4); MEAN CORPUSCULAR HGB CONC 31.4 g/dL (32.0-36.0); MEAN CORPUSCULAR VOLUME 88 fl (80-97); PLATELET COUNT 525 10^3/uL (150-450); RED BLOOD COUNT 3.76 10^6/uL (3.72-5.28); RED CELL DISTRIBUTION WIDTH 18.2 % (11.5-14.0)
[2019-06-13 10:34] LABS: ALBUMIN 3.9 g/dL (3.5-5.0); ALKALINE PHOSPHATASE 135 U/L (38-126); ASPARTATE AMINO TRANSFERASE 42 U/L (14-36); BILIRUBIN,DIRECT 0.6 mg/dL (0.0-0.4); BILIRUBIN,TOTAL 0.8 mg/dL (0.2-1.3); BLOOD UREA NITROGEN 21 mg/dL (7-20); CALCIUM 10.1 mg/dL (8.4-10.2); CHLORIDE 113 mmol/L (98-107); GLUCOSE 377 mg/dL (75-110); TOTAL PROTEIN 7.1 g/dL (6.3-8.2)
[2019-06-13 10:39] LABS: CARBON DIOXIDE 12 mmol/L (22-30)
[2019-06-13 10:45] LABS: WHITE BLOOD COUNT 44.5 10^3/uL (4.0-10.5)
[2019-06-13 10:46] LABS: ABSOLUTE LYMPHOCYTES# (MANUAL) 1.3 10^3/uL (0.5-4.7); ABSOLUTE MONOCYTES # (MANUAL) 3.6 10^3/uL (0.1-1.4); BASOPHILS % (MANUAL) 1 % (0-2); EOSINOPHILS % (MANUAL) 0 % (0-6); LYMPHOCYTES % (MANUAL) 3 % (13-45); MONOCYTES % (MANUAL) 8 % (3-13); SEGMENTED NEUTROPHILS % (MAN) 88 % (42-78); TOTAL CELLS COUNTED 100
[2019-06-13 10:51] LABS: ANION GAP 20 (5-19)
[2019-06-13 10:53] LABS: ANISOCYTOSIS 1+; PLATELET COMMENT INCREASED; POIKILOCYTOSIS SLIGHT; POLYCHROMASIA SLIGHT; SCHISTOCYTES SLIGHT; TEAR DROP CELLS SLIGHT
[2019-06-13 10:54] LABS: HYPERSEGMENTED NEUTROPHILS PRESENT
[2019-06-13] MEDS ORDERED: NORMAL SALINE 1000 ML 1,000 ML IV ONE (11:01)
[2019-06-13 11:21] LABS: INTERNATIONAL RATION (INR) 1.08; PARTIAL THROMBOPLASTIN TIME 26.7 SEC (23.5-35.8)
[2019-06-13] MEDS: BENZTROPINE MESYLATE INJ 2 MG/2 ML AMPULE IV SCH ×2 (11:33→18:35)
[2019-06-13] MEDS: INSULIN REG, HUMAN 100 UNIT/ML 3 ML VIAL (PYX) SUBCUT PRN (12:01)
[2019-06-13] MEDS: LORAZEPAM INJ 2 MG/1 ML VIAL IV PRN ×3 (12:32→20:39)
[2019-06-13] MEDS ORDERED: INSULIN GLARGINE,HUM.REC.ANLOG 1,000 UNIT/10 ML VIAL SUBCUT SCH (13:00)
[2019-06-13] MEDS ORDERED: NORMAL SALINE 100 ML with INSULIN REGULAR, HUMAN 100 UNIT IV PRN ×2 (14:32)
[2019-06-13] MEDS ORDERED: VANCOMYCIN HCL 0 MG in DEXTROSE 5%-WATER 250 ML IV NR (14:45)
[2019-06-13 15:38] LABS: ANION GAP 10 (5-19); BLOOD UREA NITROGEN 17 mg/dL (7-20); CALCIUM 7.2 mg/dL (8.4-10.2); CARBON DIOXIDE 12 mmol/L (22-30); CHLORIDE 124 mmol/L (98-107); CREATINE KINASE 379 U/L (30-135); GLUCOSE 236 mg/dL (75-110)
[2019-06-13 15:49] LABS: CREATINE KINASE MB 17.6 ng/mL (<4.55)
[2019-06-13 15:52] LABS: POTASSIUM 3.1 mmol/L (3.6-5.0)
[2019-06-13] MEDS ORDERED: DEXTROSE 50%-WATER 25 GM/50 ML DISP.SYRIN IV PRN ×2 (15:57)
[2019-06-13] MEDS ORDERED: DEXTROSE 40% GEL 15 GM TUBE PO PRN ×2 (15:57)
[2019-06-13] MEDS ORDERED: GLUCAGON,HUMAN RECOMB 1 MG INJ IM PRN (15:57)
[2019-06-13 16:02] LABS: TROPONIN I 8.92 ng/mL
[2019-06-13] MEDS ORDERED: HEPARIN SOD (PORCINE) 1,000 UNIT/ML 10 ML VIAL IV ONE (16:45)
[2019-06-13] MEDS ORDERED: LORAZEPAM INJ 2 MG/1 ML VIAL ONE (17:02)
[2019-06-13 17:06] LABS: HEMOGLOBIN 9.6 g/dL (12.0-15.5); MEAN CORPUSCULAR HEMOGLOBIN 26.7 pg (27.0-33.4); MEAN CORPUSCULAR VOLUME 86 fl (80-97); PLATELET COUNT 475 10^3/uL (150-450); RED CELL DISTRIBUTION WIDTH 18.1 % (11.5-14.0)
[2019-06-13 17:12] LABS: INTERNATIONAL RATION (INR) 1.08
[2019-06-13 17:13] LABS: PARTIAL THROMBOPLASTIN TIME 22.4 SEC (23.5-35.8)
[2019-06-13] MEDS ORDERED: HALOPERIDOL LACTATE INJ 5 MG/1 ML VIAL ONE (17:25)
[2019-06-13 17:31] LABS: ABSOLUTE LYMPHOCYTES# (MANUAL) 1.8 10^3/uL (0.5-4.7); ABSOLUTE MONOCYTES # (MANUAL) 1.8 10^3/uL (0.1-1.4); BASOPHILS % (MANUAL) 0 % (0-2); EOSINOPHILS % (MANUAL) 0 % (0-6); LYMPHOCYTES % (MANUAL) 4 % (13-45); MONOCYTES % (MANUAL) 4 % (3-13); SEGMENTED NEUTROPHILS % (MAN) 92 % (42-78); TOTAL CELLS COUNTED 100
[2019-06-13] MEDS ORDERED: LORAZEPAM INJ 2 MG/1 ML VIAL IV PRN (17:32)
[2019-06-13 17:33] LABS: ANISOCYTOSIS 2+; OVALOCYTES SLIGHT; PLATELET COMMENT ADEQUATE; POIKILOCYTOSIS SLIGHT; SCHISTOCYTES SLIGHT
[2019-06-13 17:34] LABS: WHITE BLOOD COUNT 44.1 10^3/uL (4.0-10.5)
[2019-06-13] MEDS ORDERED: OLANZAPINE INJ/PF 10 MG SDV IM ONE (17:37)
[2019-06-13] MEDS: VANCOMYCIN HCL 750 MG in DEXTROSE 5%-WATER 250 ML IV SCH (17:41)
[2019-06-13] MEDS ORDERED: HALOPERIDOL LACTATE INJ 5 MG/1 ML VIAL IV ONE (17:45)
[2019-06-13] MEDS ORDERED: METOPROLOL TARTRATE PF/INJ 5 MG/5 ML SDV IV ONE ×2 (17:49→18:30)
[2019-06-13] MEDS: INSULIN LISPRO 100 UNIT/ML 3 ML VIAL SUBCUT SCH (17:59)
[2019-06-13] MEDS: HEPARIN SODIUM,PORCINE/D5W 25,000 UNIT/250 ML RTUINJ IV PRN (18:00)
--- NOTE | 2019-06-13 18:18 | ADVANCED CARE ---
- Diagnosis (1) Acute metabolic encephalopathy Diagnosis Current: Yes (2) Diabetes type 2, uncontrolled Diagnosis Current: Yes (3) Dystonic drug reaction Diagnosis Current: Yes (4) Narcotic withdrawal Diagnosis Current: Yes (5) Pancreatic cancer Diagnosis Current: Yes Attendance: The patient's daughter, Gracy Maria ([phone]) in person; cousin ["sister" though biologically cousin], Jessica ([phone]) by phone, and Jessica's son in person. Resuscitation Status: Full Code Discussion: Discussed the patient's chronic medical conditions, general poor prognosis with stage III pancreatic cancer, uncontrolled diabetes mellitus, poor nutritional status, and current medical problem; primarily altered mental status, leukocytosis, SIRS. Discussed with family members the plan for further evaluation today. Will attempt MRI to evaluate for brain metastasis, evaluate for occult infection, and consider lumbar puncture. Importance of goal of care clarity was discussed. There is some confusion as to what the patient's desire to end of life goals would be; and comes to light that half of her family members many of the patient's family members remain unaware of her cancer diagnosis. Ultimately, the patient's only child, Gracy Maria, decided that her mother should remain full code today while conducting further evaluation. The family was encouraged to have a serious discussion today about how they would wish for us to proceed should the patient not improve or worsen. They were advised that I felt the patient had a very poor prognosis at this time (r/t chronic conditions and CA) and was in serious condition during this admission. The family members were informed that I did feel that the patient had a strong likelihood of decompensating with potential fatal event. Family members expressed understanding of the patient's condition [began discussing making arrangements for her grandchildren to come see her in the hospital from [place]] but do confirm their desire for the patient to remain FULL CODE at this time. Care Planning Goals: FULL CODE Time Spent: 45 min
[2019-06-13] MEDS: POTASSI CL 20 MEQ/50 ML RIDER 20 MEQ/50 ML RTUPB IV SCH ×2 (18:21→21:40)
--- NOTE | 2019-06-13 18:27 | EKG REPORT ---
SEVERITY:- ABNORMAL ECG - SINUS TACHYCARDIA ATRIAL PREMATURE COMPLEX PROBABLE LEFT ATRIAL ABNORMALITY INFERIOR INFARCT, AGE INDETERMINATE CONSIDER ANTERIOR INFARCT, clinical correlation needed. : Confirmed by: Vel Stewart MD 13-Jun-2019 18:26:43
[2019-06-13] MEDS: CEFTRIAXONE 2 GM/D5W RTU 2 GM/50 ML RTUPB IV SCH (18:37)
--- NOTE | 2019-06-13 18:39 | Progress Note Acknowledgement ---
Progress Note Acknowledgement Progess Note Acknowledgement: I, the undersigned member of the medical staff with appropriate privileges and with supervisory authority over Kimmy Adams, a [facility] practice allied health professional, acknowledge that I have reviewed the progress notes entered on this patient, and in my professional judgment believe that the assessment made and/or any care evidenced was appropriate
--- NOTE | 2019-06-13 18:39 | PDOC PROGRESS REPORT ---
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 The patient was seen multiple times throughout the day. She is maintaining oxygen saturations on room air. She remains disoriented/agitated with nonpurposeful movements, although not classic rhythmic movements as is seen with dystonic reactions. The patient has also cried out and verbalized "it hurts," and "please help me," but has been unable to communicate otherwise. She does not answer questions or follow commands. Today she is responsive to verbal and tactile stimuli which is improved from yesterday. ROS is limited secondary to mental status. Please see separate ACP note regarding discussion with family members. Reason For Visit: METABOLIC TOXIC ENCEPHALOPATHY Physical Exam Vital Signs: Temp Pulse Resp BP Pulse Ox 98.2 F 83 22 H 169/91 H 87 L 06/13/19 11:24 06/13/19 11:24 06/13/19 11:24 06/13/19 11:24 06/13/19 11:24 Intake & Output 06/12/19 06/13/19 06/14/19 06:59 06:59 06:59 Intake Total 267 3807 1000 Output Total 3775 Balance 247 02 1827 Weight 67.1 kg 69.2 kg General appearance: PRESENT: disheveled, mild distress, thin, well-developed Head exam: PRESENT: atraumatic, normocephalic Eye exam: PRESENT: conjunctiva pale, other - Diabetic retinopathy with blindness per family. ABSENT: scleral icterus Ear exam: PRESENT: normal external ear exam Mouth exam: PRESENT: dry mucosa, tongue midline Neck exam: ABSENT: carotid bruit, JVD, lymphadenopathy, thyromegaly Respiratory exam: PRESENT: clear to auscultation cecile, symmetrical, unlabored. ABSENT: rales, rhonchi, wheezes Cardiovascular exam: PRESENT: RRR, +S1, +S2, tachycardia. ABSENT: diastolic murmur, rubs, systolic murmur Pulses: PRESENT: normal dorsalis pedis pul Vascular exam: PRESENT: normal capillary refill GI/Abdominal exam: PRESENT: hypoactive bowel sounds, soft. 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 ABSENT: calf tenderness, clubbing, pedal edema Neurological exam: PRESENT: other - Responsive to verbal and tactile stimuli. Occasionally makes verbalizations; does not answer questions or follow directions. Moves all extremities equally. No evidence of facial droop or focal deficits. Restless and agitated Psychiatric exam: PRESENT: agitated Skin exam: PRESENT: dry, intact, pallor, warm. ABSENT: cyanosis, rash Results Laboratory Results: 06/13/19 16:43 06/13/19 15:09 06/12/19 06/12/19 06/13/19 21:55 22:52 10:04 WBC 44.5 H* RBC 3.76 Hgb 10.3 L Hct 32.9 L MCV 88 MCH 27.4 MCHC 31.4 L RDW 18.2 H Plt Count 525 H Seg Neutrophils % Not Reportable Carbonic Acid 1.00 L 0.64 L HCO3/H2CO3 Ratio 28:1 16:1 ABG pH 7.55 H 7.32 L ABG pCO2 33.3 L 21.4 L ABG pO2 32.4 L* 95.4 ABG HCO3 28.5 H 10.8 L ABG O2 Saturation 71.6 L 97.0 ABG Base Excess 5.7 -13.3 FiO2 21% ROOM AIR Sodium Potassium Chloride Carbon Dioxide Anion Gap BUN Creatinine Est GFR ( Amer) Glucose Lactic Acid Calcium Total Bilirubin AST Alkaline Phosphatase Ammonia Total Protein Albumin 06/13/19 06/13/19 06/13/19 10:04 10:04 11:06 WBC RBC Hgb Hct MCV MCH MCHC RDW Plt Count Seg Neutrophils % Carbonic Acid HCO3/H2CO3 Ratio ABG pH ABG pCO2 ABG pO2 ABG HCO3 ABG O2 Saturation ABG Base Excess FiO2 Sodium 144.9 Potassium 5.0 Chloride 113 H Carbon Dioxide 12 L Anion Gap 20 H BUN 21 H Creatinine 1.26 H Est GFR ( Amer) 54 L Glucose 377 H Lactic Acid 1.6 Calcium 10.1 Total Bilirubin 0.8 AST 42 H Alkaline Phosphatase 135 H Ammonia < 8.7 L Total Protein 7.1 Albumin 3.9 06/13/19 06/13/19 06/13/19 15:09 15:09 16:43 WBC 44.1 H* RBC 3.60 L Hgb 9.6 L Hct 31.0 L MCV 86 MCH 26.7 L MCHC 31.0 L RDW 18.1 H Plt Count 475 H Seg Neutrophils % Not Reportable Carbonic Acid HCO3/H2CO3 Ratio ABG pH ABG pCO2 ABG pO2 ABG HCO3 ABG O2 Saturation ABG Base Excess FiO2 Sodium 145.9 H Potassium 3.1 L D Chloride 124 H Carbon Dioxide 12 L Anion Gap 10 BUN 17 Creatinine 0.84 Est GFR ( Amer) > 60 Glucose 236 H Lactic Acid 1.0 Calcium 7.2 L Total Bilirubin AST Alkaline Phosphatase Ammonia Total Protein Albumin 06/13/19 06/13/19 15:09 15:09 Creatine Kinase 379 H CK-MB (CK-2) 17.60 H Troponin I 8.920 NT-Pro-B Natriuret Pep 73181 H Impressions: Abdomen/Pelvis CT 06/12/19 00:00 IMPRESSION: Fullness of the pancreatic head and body with minimal adjacent stranding, likely related to the patient's known history of pancreatic malignancy. Pancreatitis may be present. Recommend correlation with amylase and lipase. Mildly distended gallbladder. If there is concern for acute cholecystitis, an ultrasound may be useful in further evaluation. Right lower quadrant transplant kidney with no perinephric fluid collection or hydronephrosis. TECHNICAL DOCUMENTATION: Quality ID # [id number]: Final reports with documentation of one or more dose reduction techniques (e.g., Automated exposure control, adjustment of the mA and/or kV according to patient size, use of iterative reconstruction technique) copyright 2011 [employer]- All Rights Reserved Head CT 06/12/19 01:50 IMPRESSION: 1. No acute hemorrhage or mass effect. 2. Calcified lesion extending from the cribriform plate over the pituitary fossa. This is likely a calcified meningioma. Based on location could potentially affect pituitary function. MRI brain with and without contrast using pituitary protocol would provide better evaluation of this lesion and any potential mass effect on the pituitary stalk/gland. 3. Atherosclerotic plaque in the distal internal carotid arteries bilaterally 4. Coarse calcifications in both globes. Assessment and Plan - Diagnosis (1) Acute metabolic encephalopathy Is this a current diagnosis for this admission?: Yes Plan: Unclear etiology. Patient was initially admitted for dystonic reaction that required sedation with IV ketamine, Valium. Additionally the patient received IV Cogentin and Dilaudid. Throughout most of the day yesterday, the patient was minimally responsive to tactile stimuli but was protecting her airway. Head CT in the emergency department showed chronic calcifications but no acute processes. ABG shows metabolic acidosis today. Today the patient is noted to have continued altered mental status; waxing and waning between decreased responsiveness and acute agitation. She is disoriented and unable to answer questions or follow commands. Long discussion had with family members; see separate ACP note. Plan for MRI of the head to evaluate for potential metastasis. Given the patient's leukocytosis, low-grade fever, AMS should evaluate for encephalopathy. Unfortunately patient is unable to tolerate LP at this time. She is empirically started on IV Rocephin, acyclovir, and vancomycin. Droplet precautions. We will evaluate for other potential infectious sources with urinalysis, chest x-ray, RPR, HIV, HSV, lactic acid Will monitor bgl and HTN closely. Evaluate for hemodynamic causes; repeat EKG, proBNP, trend troponins Monitor for electrolyte derangements with serial chemistries. Upgraded to ICU; care turned over to Dr. Urrutia at that time. The patient's HPI, assessment, evaluation and management reviewed with Dr. Mota. Plan of care developed with his assistance. (2) Diabetes type 2, uncontrolled Qualifiers: Glycemic state: with hyperglycemia Qualified Code(s): E11.65 - Type 2 diabetes mellitus with hyperglycemia Is this a current diagnosis for this admission?: Yes Plan: Patient's ABG this morning revealed metabolic acidosis. Chemistry was concerning for ketoacidosis with anion gap 20, bicarb 12, glucose 377. Review of MAR shows that the patient has not been receiving Accu-Cheks or ordered sliding scale insulin. Patient was ordered a 1 L NS bolus, Lantus 10 units, and appropriate sliding scale insulin. Follow-up chemistry shows that her anion gap is now closed at 10 however bicarb remains low at 12. This could be potentially related to her resolved DKA, however, may also be related to her n.p.o. status and acute infectious process. We will continue to monitor with Accu-Cheks every 6 hours with sliding scale insulin. Continue Lantus 10 units daily. Hypoglycemia protocol in place. (3) Narcotic withdrawal Is this a current diagnosis for this admission?: Yes Plan: Pharmacy was able to confirm that the patient truly is prescribed OxyContin 80 mg 3 times daily and oxycodone IR 30 mg 3 times daily. Per family members, the patient has not been taking her oxycodone IR since arrival to [place] proximally 5 days ago. Secondary to her decreased mental status, the patient has undergone a drastic decrease in her total opiate dosing. Today she is started on a fentanyl patch 100 mcg. Have also ordered Dilaudid 2 mg every 4 hours as needed for pain, increased RR, or other evidence of withdrawal. (4) Pancreatic cancer Qualifiers: Pancreatic malignancy location: head of pancreas Qualified Code(s): C25.0 - Malignant neoplasm of head of pancreas Is this a current diagnosis for this admission?: Yes Plan: Stage III Pancreatic cancer per family members. Stopped chemotherapy mid session for vacation to [place]; per family, patient had intended to resume treatment upon return to [place]. Dr. Banks is consulted; appreciate his assistance/guidance as many of the family members' questions are regarding her cancer diagnosis. (5) Dystonic drug reaction Is this a current diagnosis for this admission?: Yes Plan: Resolved; no longer felt the patient is having a dystonic drug reaction to Reglan. She received IV Benadryl and IV Cogentin. Dystonia would not account for the patient's continued altered mental status and her muscle movements are no longer rhythmic in nature. Further evaluation for AMS as above. (6) STEMI (ST elevation myocardial infarction) Qualifiers: Involved coronary artery: unspecified coronary artery Qualified Code(s): I21.3 - ST elevation (STEMI) myocardial infarction of unspecified site Is this a current diagnosis for this admission?: Yes Plan: EKG shows ST elevation to V3-5; follow up EKG with evolutional changes. Troponin is elevated to 8.9 Patient has been upgraded to ICU. Start Heparin gtt. Dr. Roman is consulted; appreciate his assistance.
[2019-06-13 18:51] LABS: ANION GAP 18 (5-19); BLOOD UREA NITROGEN 21 mg/dL (7-20); CALCIUM 9.1 mg/dL (8.4-10.2); CARBON DIOXIDE 14 mmol/L (22-30); CHLORIDE 115 mmol/L (98-107); GLUCOSE 296 mg/dL (75-110)
[2019-06-13 19:06] LABS: POTASSIUM 4.2 mmol/L (3.6-5.0)
[2019-06-13] MEDS: NITROGLYCERIN 2.5 MG (0.1 MG/HR) PATCH.TD24 TD SCH (19:29)
[2019-06-13] MEDS ORDERED: ACETAMINOPHEN 650 MG SUPP.RECT PR PRN (19:29)
[2019-06-13 21:28] LABS: ANION GAP 10 (5-19); BLOOD UREA NITROGEN 21 mg/dL (7-20); CALCIUM 9.4 mg/dL (8.4-10.2); CARBON DIOXIDE 19 mmol/L (22-30); CHLORIDE 116 mmol/L (98-107); CREATINE KINASE 447 U/L (30-135); GLUCOSE 260 mg/dL (75-110); POTASSIUM 4.3 mmol/L (3.6-5.0)
--- NOTE | 2019-06-13 21:31 | RADIOLOGY REPORT (SQ) ---
EXAM DESCRIPTION: XR CHEST 1 VIEW COMPLETED DATE/TME: 06/13/2019 00:00 CLINICAL HISTORY: 49 years, Female, AMS, leukocytosis COMPARISON: None. NUMBER OF VIEWS: One TECHNIQUE: Single frontal view of the chest was obtained portably. LIMITATIONS: None. FINDINGS: Cardiac and mediastinal contours are normal. Lungs are clear. No pleural effusion or pneumothorax. IMPRESSION: No acute disease. copyright 2010 [employer]- All Rights Reserved
[2019-06-13 21:37] LABS: CREATINE KINASE MB 18.5 ng/mL (<4.55)
[2019-06-13 21:40] LABS: TROPONIN I 17.2 ng/mL
[2019-06-13] MEDS: ACYCLOVIR SODIUM 500 MG in NORMAL SALINE 100 ML IV SCH (22:45)
--- NOTE | 2019-06-13 23:11 | PDOC CONSULTATION ---
Consultation-Blank Consultation: CARDIOLOGY consultation by Dr. Joya Stone on 06/13/2019. Patient seen at 6 PM. 60 minutes spent on this patient with more than 50% of the time spent on direct patient care. REASON for consultation: Patient with acute myocardial infarction. CONSULT REQUESTING PHYSICIAN: Dr. Cheek [facility]. HISTORY PRESENT ILLNESS: Patient is very confused and has been sedated at present. Hence unable to obtain history from the patient. History obtained from the chart. Patient is a 29-year-old male with recently 2 months ago diagnosed with pancreatic cancer admitted with abdominal pain. She also developed dystonic movements. And subsequently had altered mental status. She has a white count which is in the 40,000,. Her EKG done yesterday shows ST segment elevation anterior leads consistent with a IA. Unfortunately due to patient mental status it is unable to be certain whether the pain is chest pain or not. Her EKG done today shows still some ST segment depression in the anterior leads with some evolutionary changes of the T waves. Suggesting a recent anterior infarct, which is supported by the fact that the patient's troponin is elevated at around 8.. No arrhythmias seen on the monitor. Past Medical History Past Medical History: Due to patient's dystonic reaction information was obtained from her relatives who accompanied her. 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 Denies: Nose - Allergic rhinitis Neurological Medical History: Denies: Hemorrhagic CVA, Ischemic CVA, Seizures Endocrine Medical History: Reports: Diabetes Mellitus Type 2 Denies: Diabetes Mellitus Type 1, Hyperthyroidism, Hypothyroidism Renal/ Medical History: Denies: Chronic Kidney Disease, Nephrolithiasis Malignancy Medical History: Reports: Pancreatic Cancer GI Medical History: Denies: Cirrhosis, Crohn's Disease, Hepatitis, Ulcerative Colitis Musculoskeltal Medical History: Denies: Arthritis, Fibromyalgia Skin Medical History: Denies: Eczema, Psoriasis Psychiatric Medical History: Reports: Tobacco Dependency Denies: Alcohol Dependency, Substance Abuse Traumatic Medical History: Reports: None Hematology: Denies: Anemia, Bleeding Tendencies Infectious Medical History: Reports: None Past Surgical History Past Surgical History: Reports: 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 denies: CAD Parental Family History Reviewed: Yes Children Family History Reviewed: No Sibling(s) Family History Reviewed.: Yes Medication/Allergy Allergies/Adverse Reactions: metoclopramide [From Reglan] Allergy (Severe, Verified 06/12/19 04:30) Abnormal behavior Review of Systems: Not obtainable due to the patient's mental status changes PHYSICAL EXAMINATION: The patient appears to be chronically ill. She is very confused and at present is sedated. Selected Entries 06/13/19 06/13/19 11:24 18:00 Temperature 98.2 F Pulse Rate 118 H Respiratory 26 H Rate Blood Pressure 153/83 H [Left Upper Arm ] Blood Pressure 106 Mean [Left Upper Arm] Blood Pressure Supine Position [Left Upper Arm] O2 Sat by Pulse 100 Oximetry Oxygen Delivery Room Air Method ( includes room air) Head: Is atraumatic normocephalic. EYES: Pupils are equal round regular reactive to light. ENT is negative. Neck is supple. There is no JVD. Carotids equal there is no bruits. There is no lymphadenopathy. There is no goiter. There is no accessory muscle respiration use. Trachea central. LUNGS: Is clear to auscultation percussion. HEART: S1-S2 is heard. There is tachycardia present. There is a systolic murmur left sternal border and the apex there is no rub. ABDOMEN: Soft. There is no paraspinal megaly. Bowel sounds are heard. EXTREMITIES: Femorals are diminished. There is right BKA present. Leg pulses are diminished. Femorals are diminished. There is no femoral bruits. There is no pedal edema. 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 Due to patient's is confused and agitated. PSYCHIATRIC: Not examined. EKG as mentioned earlier suggestive of ST segment elevation anterior leads. Cannot exclude old inferior IA. Subsequent EKG still shows a significant elevation with evolutionary changes. Current Medications Acetaminophen (Tylenol 650 Mg Supp) 650 mg AR Q6HP PRN PRN Reason: TEMP >101 Stop: 07/13/19 19:28 Benztropine Mesylate (Cogentin Inj 2 Mg/2 Ml Ampule) 1 mg IV BID LENA Stop: 07/13/19 09:59 Last Admin: 06/13/19 18:35 Dose: 1 mg Documented by: Dextrose (Dextrose Inj 50% Syringe (25 Gm/50 Ml)) 12.5 gm IV PRN PRN; Protocol PRN Reason: FOR BG 50-69 IN ALERT PATIENT Stop: 07/12/19 04:51 Dextrose (Dextrose Inj 50% Syringe (25 Gm/50 Ml)) 25 gm IV PRN PRN; Protocol PRN Reason: PER PROTOCOL Stop: 07/12/19 04:51 Glucagon (Glucagen Inj 1 Mg Vial) 1 mg IM PRN PRN; Protocol PRN Reason: Evaluate for BG < 70 Stop: 07/12/19 04:51 Glucagon (Glucagen Inj 1 Mg Vial) 1 mg IM PRN PRN; Protocol PRN Reason: Evaluate for BG < 70 Stop: 07/13/19 15:56 Glucose (Glutose 40% Gel 15 Gm Tube) 15 gm PO PRN PRN; Protocol PRN Reason: FOR BG 50-69 IN ALERT PATIENT Stop: 07/12/19 04:51 Glucose (Glutose 40% Gel 15 Gm Tube) 30 gm PO PRN PRN; Protocol PRN Reason: FOR BG < 50 IN ALERT PATIENT Stop: 07/12/19 04:51 Haloperidol Lactate (Haldol 5 Mg/Ml Inj 1 Ml Vial) 2 mg IV Q6HP PRN PRN Reason: RESTLESSNESS/AGITATION Stop: 07/13/19 19:29 Heparin Sodium (Porcine) (Heparin Inj 1,000 Unit/Ml 10 Ml Vial) 0 - 12,000 unit IV .BOLUS PER PROTOCOL PRN; Protocol PRN Reason: RESPOND TO aPTT VALUE Stop: 07/13/19 19:45 Hydralazine HCl (Apresoline Inj/Pf 20 Mg/1 Ml Sdv) 10 mg IV Q6HP PRN PRN Reason: SBP>180, DBP>100 Stop: 07/12/19 08:58 Last Admin: 06/12/19 11:03 Dose: 10 mg Documented by: Hydromorphone HCl (Dilaudid Inj/Pf 2 Mg/Ml Ampule) 2 mg IV Q4HP PRN PRN Reason: Pain, RR >24 Stop: 06/20/19 08:25 Last Admin: 06/13/19 21:00 Dose: 2 mg Documented by: Sodium Chloride (Nacl 0.9% 1000 Ml Iv Soln) 1,000 mls @ 150 mls/hr IV CONTINUOUS PRN PRN Reason: THIS MED IS NOT "PRN" Stop: 07/12/19 09:33 Last Admin: 06/13/19 17:32 Dose: 150 mls/hr Documented by: Ceftriaxone Sodium/Dextrose (Rocephin Rtu 2 Gm/D5w 50 Ml Premix Bag) 2 gm in 50 mls @ 100 mls/hr IV DAILY [facility] Stop: 06/20/19 17:59 Last Infusion: 06/13/19 19:07 Dose: Infused Documented by: Acyclovir Sodium 500 mg/ (Sodium Chloride) 110 mls @ 110 mls/hr IV Q8 [facility] Stop: 06/20/19 21:59 Vancomycin HCl 750 mg/ (Dextrose) 250 mls @ 166.667 mls/hr IV Q12@0400,1600 [facility] Stop: 06/20/19 15:59 Last Infusion: 06/13/19 19:11 Dose: Infused Documented by: Heparin Sodium/Dextrose (Heparin Rtu 25,000 Unit/250 Ml D5w Premix) 25,000 unit in 250 mls @ 0 mls/hr IV CONTINUOUS PRN; Protocol PRN Reason: THIS MED IS NOT "PRN" Stop: 07/13/19 16:44 Last Admin: 06/13/19 18:00 Dose: 12 unit/kg/hr, 8.3 mls/hr Documented by: Insulin Glargine (Lantus Insulin 100 Unit/1 Ml 10 Ml) 10 unit SUBCUT DAILY [facility] Stop: 07/14/19 09:59 Insulin Human Lispro (Humalog Insulin 100 Unit/1 Ml 3 Ml Vial) 0 - 12 unit SUBCUT Q6 [facility]; Protocol Stop: 07/13/19 17:59 Last Admin: 06/13/19 17:59 Dose: 8 unit Documented by: Lorazepam (Ativan Inj 2 Mg/1 Ml Vial) 1 mg IV ONCE PRN PRN Reason: 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 Stop: 06/20/19 11:48 Last Admin: 06/13/19 17:15 Dose: 1 mg Documented by: Lorazepam (Ativan Inj 2 Mg/1 Ml Vial) 2 mg IV Q6HP PRN PRN Reason: AGITATION Stop: 06/20/19 17:31 Last Admin: 06/13/19 20:39 Dose: 2 mg Documented by: Metoprolol Tartrate (Lopressor Inj/Pf 5 Mg/5 Ml Sdv) 2.5 mg IV Q6 LENA Stop: 07/14/19 00:00 Nicotine (Nicoderm 21 Mg/24 Hr Transderm Patch) 1 each TD DAILYP PRN PRN Reason: WITHDRAWAL SYMPTOMS Stop: 07/12/19 06:16 Last Admin: 06/13/19 05:55 Dose: 1 each Documented by: Nitroglycerin (Nitro-Dur 2.5 Mg (0.1 Mg/Hr) Transdermal Ptch) 1 each TD DAILY [facility]NA Stop: 07/13/19 18:44 Last Admin: 06/13/19 19:29 Dose: 1 each Documented by: Ondansetron HCl (Zofran Inj/Pf 4 Mg/2 Ml Sdv) 8 mg IV Q6HP PRN PRN Reason: FOR NAUSEA/VOMITING Stop: 07/12/19 04:43 Pantoprazole Sodium (Protonix [address] Tablet) 40 mg PO DAILY [facility] Stop: 07/13/19 09:59 Last Admin: 06/13/19 09:13 Dose: Not Given Documented by: Sodium Chloride (Saline Flush 2.5 Ml Monoject Prefil Syrin) 2.5 ml IV Q8 LENA Stop: 07/12/19 05:59 Last Admin: 06/13/19 14:21 Dose: Not Given Documented by: Labs- Entire Visit 06/11/19 06/11/19 06/11/19 19:20 19:20 19:20 WBC 26.3 H RBC 3.90 Hgb 10.7 L Hct 33.5 L MCV 86 MCH 27.3 MCHC 31.8 L RDW 17.2 H Plt Count 505 H Lymph % (Auto) Not Reportable [place] % (Auto) Not Reportable Eos % (Auto) Not Reportable Baso % (Auto) Not Reportable Absolute Neuts (auto) Not Reportable Absolute Lymphs (auto) Not Reportable Absolute Monos (auto) Not Reportable Absolute Eos (auto) Not Reportable Absolute Basos (auto) Not Reportable Total Counted 100 Seg Neutrophils % Not Reportable Seg Neuts % (Manual) 92 H Lymphocytes % (Manual) 3 L Monocytes % (Manual) 5 Eosinophils % (Manual) 0 Basophils % (Manual) 0 Abs Neuts (Manual) 24.2 H Abs Lymphs (Manual) 0.8 Abs Monocytes (Manual) 1.3 Absolute Eos (Manual) 0.0 Abs Basophils (Manual) 0.0 Hypersegmented Neuts Platelet Comment INCREASED Polychromasia Poikilocytosis SLIGHT Anisocytosis 1+ Tear Drop Cells Ovalocytes SLIGHT Schistocytes SLIGHT PT INR APTT Carbonic Acid HCO3/H2CO3 Ratio ABG pH ABG pCO2 ABG pO2 ABG HCO3 ABG Total CO2 ABG O2 Saturation ABG Base Excess FiO2 Sodium 136.3 L Potassium 5.5 H Chloride 100 Carbon Dioxide 23 Anion Gap 13 BUN 27 H Creatinine 1.38 H Est GFR ( Amer) 49 L Est GFR (MDRD) Non-Af 40 L Glucose 371 H POC Glucose Lactic Acid Calcium 9.7 Total Bilirubin 0.7 Direct Bilirubin 0.6 H Neonat Total Bilirubin Not Reportable Neonat Direct Bilirubin Not Reportable Neonat Indirect Bili Not Reportable AST 14 ALT 8 Alkaline Phosphatase 138 H Ammonia Creatine Kinase CK-MB (CK-2) Troponin I NT-Pro-B Natriuret Pep Total Protein 7.9 Albumin 4.3 Amylase 48 Lipase < 10.0 L Urine Color Urine Appearance Urine pH Ur Specific [place] Urine Protein Urine Glucose (UA) Urine Ketones Urine Blood Urine Nitrite Urine Bilirubin Urine Urobilinogen Ur Leukocyte Esterase Urine WBC (Auto) Urine RBC (Auto) Squamous Epi Cells Auto Urine Ascorbic Acid HIV 1&2 Antibody 06/11/19 06/11/19 06/11/19 20:15 22:18 22:21 WBC RBC Hgb Hct MCV MCH MCHC RDW Plt Count Lymph % (Auto) [place] % (Auto) Eos % (Auto) Baso % (Auto) Absolute Neuts (auto) Absolute Lymphs (auto) Absolute Monos (auto) Absolute Eos (auto) Absolute Basos (auto) Total Counted Seg Neutrophils % Seg Neuts % (Manual) Lymphocytes % (Manual) Monocytes % (Manual) Eosinophils % (Manual) Basophils % (Manual) Abs Neuts (Manual) Abs Lymphs (Manual) Abs Monocytes (Manual) Absolute Eos (Manual) Abs Basophils (Manual) Hypersegmented Neuts Platelet Comment Polychromasia Poikilocytosis Anisocytosis Tear Drop Cells Ovalocytes Schistocytes PT INR APTT Carbonic Acid HCO3/H2CO3 Ratio ABG pH ABG pCO2 ABG pO2 ABG HCO3 ABG Total CO2 ABG O2 Saturation ABG Base Excess FiO2 Sodium Potassium Chloride Carbon Dioxide Anion Gap BUN Creatinine Est GFR ( Amer) Est GFR (MDRD) Non-Af Glucose POC Glucose 365 H Lactic Acid 1.1 Calcium Total Bilirubin Direct Bilirubin Neonat Total Bilirubin Neonat Direct Bilirubin Neonat Indirect Bili AST ALT Alkaline Phosphatase Ammonia Creatine Kinase CK-MB (CK-2) Troponin I NT-Pro-B Natriuret Pep Total Protein Albumin Amylase Lipase Urine Color STRAW Urine Appearance CLEAR Urine pH 6.0 Ur Specific [place] 1.010 Urine Protein 100 H Urine Glucose (UA) >=500 H Urine Ketones TRACE H Urine Blood NEGATIVE Urine Nitrite NEGATIVE Urine Bilirubin NEGATIVE Urine Urobilinogen NEGATIVE Ur Leukocyte Esterase NEGATIVE Urine WBC (Auto) 1 Urine RBC (Auto) 2 Squamous Epi Cells Auto 1 Urine Ascorbic Acid NEGATIVE HIV 1&2 Antibody 06/12/19 06/12/19 06/12/19 02:40 03:45 07:25 WBC RBC Hgb Hct MCV MCH MCHC RDW Plt Count Lymph % (Auto) [place] % (Auto) Eos % (Auto) Baso % (Auto) Absolute Neuts (auto) Absolute Lymphs (auto) Absolute Monos (auto) Absolute Eos (auto) Absolute Basos (auto) Total Counted Seg Neutrophils % Seg Neuts % (Manual) Lymphocytes % (Manual) Monocytes % (Manual) Eosinophils % (Manual) Basophils % (Manual) Abs Neuts (Manual) Abs Lymphs (Manual) Abs Monocytes (Manual) Absolute Eos (Manual) Abs Basophils (Manual) Hypersegmented Neuts Platelet Comment Polychromasia Poikilocytosis Anisocytosis Tear Drop Cells Ovalocytes Schistocytes PT INR APTT Carbonic Acid HCO3/H2CO3 Ratio ABG pH ABG pCO2 ABG pO2 ABG HCO3 ABG Total CO2 ABG O2 Saturation ABG Base Excess FiO2 Sodium 141.7 Potassium 4.7 Chloride 107 Carbon Dioxide 18 L Anion Gap 17 BUN 27 H Creatinine 1.37 H Est GFR ( Amer) 49 L Est GFR (MDRD) Non-Af 41 L Glucose 259 H POC Glucose 478 H* Lactic Acid Calcium 10.0 Total Bilirubin Direct Bilirubin Neonat Total Bilirubin Neonat Direct Bilirubin Neonat Indirect Bili AST ALT Alkaline Phosphatase Ammonia < 8.7 L Creatine Kinase CK-MB (CK-2) Troponin I NT-Pro-B Natriuret Pep Total Protein Albumin Amylase Lipase Urine Color Urine Appearance Urine pH Ur Specific [place] Urine Protein Urine Glucose (UA) Urine Ketones Urine Blood Urine Nitrite Urine Bilirubin Urine Urobilinogen Ur Leukocyte Esterase Urine WBC (Auto) Urine RBC (Auto) Squamous Epi Cells Auto Urine Ascorbic Acid HIV 1&2 Antibody 06/12/19 06/12/19 06/12/19 11:50 17:03 21:42 WBC RBC Hgb Hct MCV MCH MCHC RDW Plt Count Lymph % (Auto) [place] % (Auto) Eos % (Auto) Baso % (Auto) Absolute Neuts (auto) Absolute Lymphs (auto) Absolute Monos (auto) Absolute Eos (auto) Absolute Basos (auto) Total Counted Seg Neutrophils % Seg Neuts % (Manual) Lymphocytes % (Manual) Monocytes % (Manual) Eosinophils % (Manual) Basophils % (Manual) Abs Neuts (Manual) Abs Lymphs (Manual) Abs Monocytes (Manual) Absolute Eos (Manual) Abs Basophils (Manual) Hypersegmented Neuts Platelet Comment Polychromasia Poikilocytosis Anisocytosis Tear Drop Cells Ovalocytes Schistocytes PT INR APTT Carbonic Acid HCO3/H2CO3 Ratio ABG pH ABG pCO2 ABG pO2 ABG HCO3 ABG Total CO2 ABG O2 Saturation ABG Base Excess FiO2 Sodium Potassium Chloride Carbon Dioxide Anion Gap BUN Creatinine Est GFR ( Amer) Est GFR (MDRD) Non-Af Glucose POC Glucose 210 H 373 H 397 H Lactic Acid Calcium Total Bilirubin Direct Bilirubin Neonat Total Bilirubin Neonat Direct Bilirubin Neonat Indirect Bili AST ALT Alkaline Phosphatase Ammonia Creatine Kinase CK-MB (CK-2) Troponin I NT-Pro-B Natriuret Pep Total Protein Albumin Amylase Lipase Urine Color Urine Appearance Urine pH Ur Specific [place] Urine Protein Urine Glucose (UA) Urine Ketones Urine Blood Urine Nitrite Urine Bilirubin Urine Urobilinogen Ur Leukocyte Esterase Urine WBC (Auto) Urine RBC (Auto) Squamous Epi Cells Auto Urine Ascorbic Acid HIV 1&2 Antibody 06/12/19 06/12/19 06/13/19 21:55 22:52 10:04 WBC 44.5 H* RBC 3.76 Hgb 10.3 L Hct 32.9 L MCV 88 MCH 27.4 MCHC 31.4 L RDW 18.2 H Plt Count 525 H Lymph % (Auto) Not Reportable [place] % (Auto) Not Reportable Eos % (Auto) Not Reportable Baso % (Auto) Not Reportable Absolute Neuts (auto) Not Reportable Absolute Lymphs (auto) Not Reportable Absolute Monos (auto) Not Reportable Absolute Eos (auto) Not Reportable Absolute Basos (auto) Not Reportable Total Counted 100 Seg Neutrophils % Not Reportable Seg Neuts % (Manual) 88 H Lymphocytes % (Manual) 3 L Monocytes % (Manual) 8 Eosinophils % (Manual) 0 Basophils % (Manual) 1 Abs Neuts (Manual) 39.2 H Abs Lymphs (Manual) 1.3 Abs Monocytes (Manual) 3.6 H Absolute Eos (Manual) 0.0 Abs Basophils (Manual) 0.4 H Hypersegmented Neuts PRESENT Platelet Comment INCREASED Polychromasia SLIGHT Poikilocytosis SLIGHT Anisocytosis 1+ Tear Drop Cells SLIGHT Ovalocytes Schistocytes SLIGHT PT INR APTT Carbonic Acid 1.00 L 0.64 L HCO3/H2CO3 Ratio 28:1 16:1 ABG pH 7.55 H 7.32 L ABG pCO2 33.3 L 21.4 L ABG pO2 32.4 L* 95.4 ABG HCO3 28.5 H 10.8 L ABG Total CO2 29.6 H 11.5 L ABG O2 Saturation 71.6 L 97.0 ABG Base Excess 5.7 -13.3 FiO2 21% ROOM AIR Sodium Potassium Chloride Carbon Dioxide Anion Gap BUN Creatinine Est GFR ( Amer) Est GFR (MDRD) Non-Af Glucose POC Glucose Lactic Acid Calcium Total Bilirubin Direct Bilirubin Neonat Total Bilirubin Neonat Direct Bilirubin Neonat Indirect Bili AST ALT Alkaline Phosphatase Ammonia Creatine Kinase CK-MB (CK-2) Troponin I NT-Pro-B Natriuret Pep Total Protein Albumin Amylase Lipase Urine Color Urine Appearance Urine pH Ur Specific [place] Urine Protein Urine Glucose (UA) Urine Ketones Urine Blood Urine Nitrite Urine Bilirubin Urine Urobilinogen Ur Leukocyte Esterase Urine WBC (Auto) Urine RBC (Auto) Squamous Epi Cells Auto Urine Ascorbic Acid HIV 1&2 Antibody 06/13/19 06/13/19 06/13/19 10:04 10:04 11:06 WBC RBC Hgb Hct MCV MCH MCHC RDW Plt Count Lymph % (Auto) [place] % (Auto) Eos % (Auto) Baso % (Auto) Absolute Neuts (auto) Absolute Lymphs (auto) Absolute Monos (auto) Absolute Eos (auto) Absolute Basos (auto) Total Counted Seg Neutrophils % Seg Neuts % (Manual) Lymphocytes % (Manual) Monocytes % (Manual) Eosinophils % (Manual) Basophils % (Manual) Abs Neuts (Manual) Abs Lymphs (Manual) Abs Monocytes (Manual) Absolute Eos (Manual) Abs Basophils (Manual) Hypersegmented Neuts Platelet Comment Polychromasia Poikilocytosis Anisocytosis Tear Drop Cells Ovalocytes Schistocytes PT INR APTT Carbonic Acid HCO3/H2CO3 Ratio ABG pH ABG pCO2 ABG pO2 ABG HCO3 ABG Total CO2 ABG O2 Saturation ABG Base Excess FiO2 Sodium 144.9 Potassium 5.0 Chloride 113 H Carbon Dioxide 12 L Anion Gap 20 H BUN 21 H Creatinine 1.26 H Est GFR ( Amer) 54 L Est GFR (MDRD) Non-Af 45 L Glucose 377 H POC Glucose Lactic Acid 1.6 Calcium 10.1 Total Bilirubin 0.8 Direct Bilirubin 0.6 H Neonat Total Bilirubin Not Reportable Neonat Direct Bilirubin Not Reportable Neonat Indirect Bili Not Reportable AST 42 H ALT 14 Alkaline Phosphatase 135 H Ammonia < 8.7 L Creatine Kinase CK-MB (CK-2) Troponin I NT-Pro-B Natriuret Pep Total Protein 7.1 Albumin 3.9 Amylase Lipase Urine Color Urine Appearance Urine pH Ur Specific [place] Urine Protein Urine Glucose (UA) Urine Ketones Urine Blood Urine Nitrite Urine Bilirubin Urine Urobilinogen Ur Leukocyte Esterase Urine WBC (Auto) Urine RBC (Auto) Squamous Epi Cells Auto Urine Ascorbic Acid HIV 1&2 Antibody 06/13/19 06/13/19 06/13/19 11:06 11:27 15:09 WBC RBC Hgb Hct MCV MCH MCHC RDW Plt Count Lymph % (Auto) [place] % (Auto) Eos % (Auto) Baso % (Auto) Absolute Neuts (auto) Absolute Lymphs (auto) Absolute Monos (auto) Absolute Eos (auto) Absolute Basos (auto) Total Counted Seg Neutrophils % Seg Neuts % (Manual) Lymphocytes % (Manual) Monocytes % (Manual) Eosinophils % (Manual) Basophils % (Manual) Abs Neuts (Manual) Abs Lymphs (Manual) Abs Monocytes (Manual) Absolute Eos (Manual) Abs Basophils (Manual) Hypersegmented Neuts Platelet Comment Polychromasia Poikilocytosis Anisocytosis Tear Drop Cells Ovalocytes Schistocytes PT 14.0 INR 1.08 APTT 26.7 Carbonic Acid HCO3/H2CO3 Ratio ABG pH ABG pCO2 ABG pO2 ABG HCO3 ABG Total CO2 ABG O2 Saturation ABG Base Excess FiO2 Sodium 145.9 H Potassium 3.1 L D Chloride 124 H Carbon Dioxide 12 L Anion Gap 10 BUN 17 Creatinine 0.84 Est GFR ( Amer) > 60 Est GFR (MDRD) Non-Af > 60 Glucose 236 H POC Glucose 416 H* Lactic Acid Calcium 7.2 L Total Bilirubin Direct Bilirubin Neonat Total Bilirubin Neonat Direct Bilirubin Neonat Indirect Bili AST ALT Alkaline Phosphatase Ammonia Creatine Kinase 379 H CK-MB (CK-2) Troponin I NT-Pro-B Natriuret Pep Total Protein Albumin Amylase Lipase Urine Color Urine Appearance Urine pH Ur Specific [place] Urine Protein Urine Glucose (UA) Urine Ketones Urine Blood Urine Nitrite Urine Bilirubin Urine Urobilinogen Ur Leukocyte Esterase Urine WBC (Auto) Urine RBC (Auto) Squamous Epi Cells Auto Urine Ascorbic Acid HIV 1&2 Antibody 06/13/19 06/13/19 06/13/19 15:09 15:09 15:09 WBC RBC Hgb Hct MCV MCH MCHC RDW Plt Count Lymph % (Auto) [place] % (Auto) Eos % (Auto) Baso % (Auto) Absolute Neuts (auto) Absolute Lymphs (auto) Absolute Monos (auto) Absolute Eos (auto) Absolute Basos (auto) Total Counted Seg Neutrophils % Seg Neuts % (Manual) Lymphocytes % (Manual) Monocytes % (Manual) Eosinophils % (Manual) Basophils % (Manual) Abs Neuts (Manual) Abs Lymphs (Manual) Abs Monocytes (Manual) Absolute Eos (Manual) Abs Basophils (Manual) Hypersegmented Neuts Platelet Comment Polychromasia Poikilocytosis Anisocytosis Tear Drop Cells Ovalocytes Schistocytes PT INR APTT Carbonic Acid HCO3/H2CO3 Ratio ABG pH ABG pCO2 ABG pO2 ABG HCO3 ABG Total CO2 ABG O2 Saturation ABG Base Excess FiO2 Sodium Potassium Chloride Carbon Dioxide Anion Gap BUN Creatinine Est GFR ( Amer) Est GFR (MDRD) Non-Af Glucose POC Glucose Lactic Acid 1.0 Calcium Total Bilirubin Direct Bilirubin Neonat Total Bilirubin Neonat Direct Bilirubin Neonat Indirect Bili AST ALT Alkaline Phosphatase Ammonia Creatine Kinase CK-MB (CK-2) 17.60 H Troponin I 8.920 NT-Pro-B Natriuret Pep 47522 H Total Protein Albumin Amylase Lipase Urine Color Urine Appearance Urine pH Ur Specific [place] Urine Protein Urine Glucose (UA) Urine Ketones Urine Blood Urine Nitrite Urine Bilirubin Urine Urobilinogen Ur Leukocyte Esterase Urine WBC (Auto) Urine RBC (Auto) Squamous Epi Cells Auto Urine Ascorbic Acid HIV 1&2 Antibody NEGATIVE 06/13/19 06/13/19 06/13/19 16:43 16:43 17:54 WBC 44.1 H* RBC 3.60 L Hgb 9.6 L Hct 31.0 L MCV 86 MCH 26.7 L MCHC 31.0 L RDW 18.1 H Plt Count 475 H Lymph % (Auto) Not Reportable [place] % (Auto) Not Reportable Eos % (Auto) Not Reportable Baso % (Auto) Not Reportable Absolute Neuts (auto) Not Reportable Absolute Lymphs (auto) Not Reportable Absolute Monos (auto) Not Reportable Absolute Eos (auto) Not Reportable Absolute Basos (auto) Not Reportable Total Counted 100 Seg Neutrophils % Not Reportable Seg Neuts % (Manual) 92 H Lymphocytes % (Manual) 4 L Monocytes % (Manual) 4 Eosinophils % (Manual) 0 Basophils % (Manual) 0 Abs Neuts (Manual) 40.6 H Abs Lymphs (Manual) 1.8 Abs Monocytes (Manual) 1.8 H Absolute Eos (Manual) 0.0 Abs Basophils (Manual) 0.0 Hypersegmented Neuts Platelet Comment ADEQUATE Polychromasia Poikilocytosis SLIGHT Anisocytosis 2+ Tear Drop Cells Ovalocytes SLIGHT Schistocytes SLIGHT PT 14.0 INR 1.08 APTT 22.4 L Carbonic Acid HCO3/H2CO3 Ratio ABG pH ABG pCO2 ABG pO2 ABG HCO3 ABG Total CO2 ABG O2 Saturation ABG Base Excess FiO2 Sodium Potassium Chloride Carbon Dioxide Anion Gap BUN Creatinine Est GFR ( Amer) Est GFR (MDRD) Non-Af Glucose POC Glucose 303 H Lactic Acid Calcium Total Bilirubin Direct Bilirubin Neonat Total Bilirubin Neonat Direct Bilirubin Neonat Indirect Bili AST ALT Alkaline Phosphatase Ammonia Creatine Kinase CK-MB (CK-2) Troponin I NT-Pro-B Natriuret Pep Total Protein Albumin Amylase Lipase Urine Color Urine Appearance Urine pH Ur Specific [place] Urine Protein Urine Glucose (UA) Urine Ketones Urine Blood Urine Nitrite Urine Bilirubin Urine Urobilinogen Ur Leukocyte Esterase Urine WBC (Auto) Urine RBC (Auto) Squamous Epi Cells Auto Urine Ascorbic Acid HIV 1&2 Antibody 06/13/19 06/13/19 06/13/19 18:19 20:56 20:56 WBC RBC Hgb Hct MCV MCH MCHC RDW Plt Count Lymph % (Auto) [place] % (Auto) Eos % (Auto) Baso % (Auto) Absolute Neuts (auto) Absolute Lymphs (auto) Absolute Monos (auto) Absolute Eos (auto) Absolute Basos (auto) Total Counted Seg Neutrophils % Seg Neuts % (Manual) Lymphocytes % (Manual) Monocytes % (Manual) Eosinophils % (Manual) Basophils % (Manual) Abs Neuts (Manual) Abs Lymphs (Manual) Abs Monocytes (Manual) Absolute Eos (Manual) Abs Basophils (Manual) Hypersegmented Neuts Platelet Comment Polychromasia Poikilocytosis Anisocytosis Tear Drop Cells Ovalocytes Schistocytes PT INR APTT Carbonic Acid HCO3/H2CO3 Ratio ABG pH ABG pCO2 ABG pO2 ABG HCO3 ABG Total CO2 ABG O2 Saturation ABG Base Excess FiO2 Sodium 147.2 H 144.6 Potassium 4.2 D 4.3 Chloride 115 H 116 H Carbon Dioxide 14 L 19 L Anion Gap 18 10 BUN 21 H 21 H Creatinine 1.14 1.23 Est GFR ( Amer) > 60 56 L Est GFR (MDRD) Non-Af 50 L 46 L Glucose 296 H 260 H POC Glucose Lactic Acid Calcium 9.1 9.4 Total Bilirubin Direct Bilirubin Neonat Total Bilirubin Neonat Direct Bilirubin Neonat Indirect Bili AST ALT Alkaline Phosphatase Ammonia Creatine Kinase 447 H CK-MB (CK-2) 18.50 H Troponin I 17.200 NT-Pro-B Natriuret Pep Total Protein Albumin Amylase Lipase Urine Color Urine Appearance Urine pH Ur Specific [place] Urine Protein Urine Glucose (UA) Urine Ketones Urine Blood Urine Nitrite Urine Bilirubin Urine Urobilinogen Ur Leukocyte Esterase Urine WBC (Auto) Urine RBC (Auto) Squamous Epi Cells Auto Urine Ascorbic Acid HIV 1&2 Antibody Abdomen/Pelvis CT 06/12/19 00:00 IMPRESSION: Fullness of the pancreatic head and body with minimal adjacent stranding, likely related to the patient's known history of pancreatic malignancy. Pancreatitis may be present. Recommend correlation with amylase and lipase. Mildly distended gallbladder. If there is concern for acute cholecystitis, an ultrasound may be useful in further evaluation. Right lower quadrant transplant kidney with no perinephric fluid collection or hydronephrosis. TECHNICAL DOCUMENTATION: Quality ID # [id number]: Final reports with documentation of one or more dose reduction techniques (e.g., Automated exposure control, adjustment of the mA and/or kV according to patient size, use of iterative reconstruction technique) copyright 2011 [employer]- All Rights Reserved Head CT 06/12/19 01:50 IMPRESSION: 1. No acute hemorrhage or mass effect. 2. Calcified lesion extending from the cribriform plate over the pituitary fossa. This is likely a calcified meningioma. Based on location could potentially affect pituitary function. MRI brain with and without contrast using pituitary protocol would provide better evaluation of this lesion and any potential mass effect on the pituitary stalk/gland. 3. Atherosclerotic plaque in the distal internal carotid arteries bilaterally 4. Coarse calcifications in both globes. Chest X-Ray 06/13/19 00:00 IMPRESSION: No acute disease. Impression/RECOMMENDATION: 1. Acute ST elevation IA: Patient at present not a candidate for TPA or cardiac catheterization. In view of the patient's altered mental status, inability to a certain whether the patient does have chest pain or not, and the. May be beyond the TPA window of time. Also the patient appears to be septic with a white count of 40,000. Hence would start the patient on full dose IV heparin. Place the patient on aspirin rectal suppository 300 mg daily, and metoprolol intravenously 2.5 mg every 6 hours [id number], and place the patient on nitrates. Patient prognosis very guarded. The fortunate thing is that the patient is not in any heart failure. And there are no arrhythmias seen. 2. Significant leukocytosis. Suspect sepsis: Continue broad-spectrum antibiotics. Would recommend blood cultures urine cultures. 3. Altered mental status and dystonic movements? Etiology most likely delirium secondary to sepsis. 4. History of pancreatic cancer: Oncology on the case. 5. Peripheral vascular disease status post right BKA. Medications reviewed medications added. Management plan discussed with the attending provider on the on the case. Medical decision making is of high complexity. Will follow.
[2019-06-14 01:03] LABS: ANION GAP 15 (5-19); BLOOD UREA NITROGEN 21 mg/dL (7-20); CALCIUM 9.1 mg/dL (8.4-10.2); CARBON DIOXIDE 14 mmol/L (22-30); CHLORIDE 118 mmol/L (98-107); CREATINE KINASE 359 U/L (30-135); GLUCOSE 358 mg/dL (75-110)
[2019-06-14] MEDS: HYDROMORPHONE HCL INJ/PF 2 MG/ML AMPULE IV PRN ×5 (01:13→22:37)
[2019-06-14] MEDS: HALOPERIDOL LACTATE INJ 5 MG/1 ML VIAL IV PRN ×3 (01:13→18:39)
[2019-06-14] MEDS: HEPARIN SOD (PORCINE) 1,000 UNIT/ML 10 ML VIAL IV PRN (01:36)
[2019-06-14] MEDS: METOPROLOL TARTRATE PF/INJ 5 MG/5 ML SDV IV SCH ×2 (01:46→05:45)
[2019-06-14] MEDS: INSULIN LISPRO 100 UNIT/ML 3 ML VIAL SUBCUT SCH ×4 (01:48→17:55)
[2019-06-14] MEDS: LORAZEPAM INJ 2 MG/1 ML VIAL IV PRN ×4 (02:09→19:40)
[2019-06-14 04:48] LABS: ANION GAP 10 (5-19); BLOOD UREA NITROGEN 23 mg/dL (7-20); CALCIUM 9.3 mg/dL (8.4-10.2); CARBON DIOXIDE 18 mmol/L (22-30); CHLORIDE 120 mmol/L (98-107); GLUCOSE 254 mg/dL (75-110); POTASSIUM 4.1 mmol/L (3.6-5.0)
[2019-06-14 04:56] LABS: CREATINE KINASE MB 12.5 ng/mL (<4.55); TROPONIN I 16.2 ng/mL
[2019-06-14] MEDS: VANCOMYCIN HCL 750 MG in DEXTROSE 5%-WATER 250 ML IV SCH ×2 (05:17→15:30)
[2019-06-14] MEDS: ACYCLOVIR SODIUM 500 MG in NORMAL SALINE 100 ML IV SCH ×3 (08:17→17:40)
--- NOTE | 2019-06-14 08:50 | PDOC PROGRESS REPORT ---
Subjective Progress Note for:: 06/14/19 Subjective:: Pt still confused, unfortunately troponin greatly elev, wt ct elevated, MS still poor, still agitated at times, long family discussions w/ hospitalist team and pt still full code and full care. Had long discussion w/ hospitalist team about this over last 24 hrs, spent 45 m in coordination of care. Reason For Visit: METABOLIC TOXIC ENCEPHALOPATHY Physical Exam Vital Signs: Temp Pulse Resp BP Pulse Ox 100.4 F 110 H 26 H 153/83 H 100 06/13/19 22:00 06/14/19 08:06 06/13/19 18:00 06/13/19 18:00 06/13/19 18:00 Intake & Output 06/13/19 06/14/19 06/15/19 06:59 06:59 06:59 Intake Total 3807 1521 Output Total 3775 Balance 32 1521 Weight 69.2 kg General appearance: PRESENT: no acute distress, well-developed, well-nourished Head exam: PRESENT: atraumatic, normocephalic Eye exam: PRESENT: conjunctiva pink, EOMI, PERRLA. ABSENT: scleral icterus Ear exam: PRESENT: normal external ear exam Mouth exam: PRESENT: moist, tongue midline Neck exam: ABSENT: carotid bruit, JVD, lymphadenopathy, thyromegaly Respiratory exam: PRESENT: clear to auscultation cecile. ABSENT: rales, rhonchi, wheezes Cardiovascular exam: PRESENT: RRR. ABSENT: diastolic murmur, rubs, systolic murmur Pulses: PRESENT: normal dorsalis pedis pul Vascular exam: PRESENT: normal capillary refill GI/Abdominal exam: PRESENT: normal bowel sounds, soft. ABSENT: distended, guarding, mass, organolmegaly, rebound, tenderness Rectal exam: PRESENT: deferred Extremities exam: PRESENT: full ROM. ABSENT: calf tenderness, clubbing, pedal edema Neurological exam: PRESENT: alert, awake, oriented to person, oriented to place, oriented to time, oriented to situation, CN II-XII grossly intact. ABSENT: motor sensory deficit Psychiatric exam: PRESENT: appropriate affect, normal mood. ABSENT: homicidal ideation, suicidal ideation Skin exam: PRESENT: dry, intact, warm. ABSENT: cyanosis, rash Results Laboratory Results: 06/13/19 16:43 06/13/19 06/13/19 06/13/19 10:04 10:04 10:04 WBC 44.5 H* RBC 3.76 Hgb 10.3 L Hct 32.9 L MCV 88 MCH 27.4 MCHC 31.4 L RDW 18.2 H Plt Count 525 H Seg Neutrophils % Not Reportable Sodium 144.9 Potassium 5.0 Chloride 113 H Carbon Dioxide 12 L Anion Gap 20 H BUN 21 H Creatinine 1.26 H Est GFR ( Amer) 54 L Glucose 377 H Lactic Acid Calcium 10.1 Total Bilirubin 0.8 AST 42 H Alkaline Phosphatase 135 H Ammonia < 8.7 L Total Protein 7.1 Albumin 3.9 06/13/19 06/13/19 06/13/19 11:06 15:09 15:09 WBC RBC Hgb Hct MCV MCH MCHC RDW Plt Count Seg Neutrophils % Sodium 145.9 H Potassium 3.1 L D Chloride 124 H Carbon Dioxide 12 L Anion Gap 10 BUN 17 Creatinine 0.84 Est GFR ( Amer) > 60 Glucose 236 H Lactic Acid 1.6 1.0 Calcium 7.2 L Total Bilirubin AST Alkaline Phosphatase Ammonia Total Protein Albumin 06/13/19 06/13/19 06/13/19 16:43 18:19 20:56 WBC 44.1 H* RBC 3.60 L Hgb 9.6 L Hct 31.0 L MCV 86 MCH 26.7 L MCHC 31.0 L RDW 18.1 H Plt Count 475 H Seg Neutrophils % Not Reportable Sodium 147.2 H 144.6 Potassium 4.2 D 4.3 Chloride 115 H 116 H Carbon Dioxide 14 L 19 L Anion Gap 18 10 BUN 21 H 21 H Creatinine 1.14 1.23 Est GFR ( Amer) > 60 56 L Glucose 296 H 260 H Lactic Acid Calcium 9.1 9.4 Total Bilirubin AST Alkaline Phosphatase Ammonia Total Protein Albumin 06/14/19 06/14/19 00:30 04:06 WBC RBC Hgb Hct MCV MCH MCHC RDW Plt Count Seg Neutrophils % Sodium 147.2 H 147.9 H Potassium 5.0 4.1 Chloride 118 H 120 H Carbon Dioxide 14 L 18 L Anion Gap 15 10 BUN 21 H 23 H Creatinine 1.34 H 1.33 H Est GFR ( Amer) 50 L 51 L Glucose 358 H 254 H Lactic Acid Calcium 9.1 9.3 Total Bilirubin AST Alkaline Phosphatase Ammonia Total Protein Albumin 06/13/19 06/13/19 06/13/19 15:09 15:09 20:56 Creatine Kinase 379 H 447 H CK-MB (CK-2) 17.60 H Troponin I 8.920 NT-Pro-B Natriuret Pep 94772 H 06/13/19 06/14/19 06/14/19 20:56 00:30 04:06 Creatine Kinase 359 H CK-MB (CK-2) 18.50 H 12.50 H Troponin I 17.200 16.200 NT-Pro-B Natriuret Pep Impressions: Abdomen/Pelvis CT 06/12/19 00:00 IMPRESSION: Fullness of the pancreatic head and body with minimal adjacent stranding, likely related to the patient's known history of pancreatic malignancy. Pancreatitis may be present. Recommend correlation with amylase and lipase. Mildly distended gallbladder. If there is concern for acute cholecystitis, an ultrasound may be useful in further evaluation. Right lower quadrant transplant kidney with no perinephric fluid collection or hydronephrosis. TECHNICAL DOCUMENTATION: Quality ID # 436: Final reports with documentation of one or more dose reduction techniques (e.g., Automated exposure control, adjustment of the mA and/or kV according to patient size, use of iterative reconstruction technique) copyright 2010 [employer]- All Rights Reserved Head CT 06/12/19 01:50 IMPRESSION: 1. No acute hemorrhage or mass effect. 2. Calcified lesion extending from the cribriform plate over the pituitary fossa. This is likely a calcified meningioma. Based on location could potentially affect pituitary function. MRI brain with and without contrast using pituitary protocol would provide better evaluation of this lesion and any potential mass effect on the pituitary stalk/gland. 3. Atherosclerotic plaque in the distal internal carotid arteries bilaterally 4. Coarse calcifications in both globes. Chest X-Ray 06/13/19 00:00 IMPRESSION: No acute disease. copyright 2010 [employer]- All Rights Reserved Assessment & Plan - Diagnosis (1) Pancreatic cancer Qualifiers: Pancreatic malignancy location: head of pancreas Qualified Code(s): C25.0 - Malignant neoplasm of head of pancreas Is this a current diagnosis for this admission?: Yes Plan: Not candidate for any rx given current condition, and poor PS, but regardless, seems that pt did not want further therapy in [facility]. Will follow peripherally, if needed we can be available to speak w/ family. At present hospitalist team feels family understands situation thus far.
[2019-06-14 09:18] LABS: ANION GAP 15 (5-19); BLOOD UREA NITROGEN 22 mg/dL (7-20); CALCIUM 9.2 mg/dL (8.4-10.2); CARBON DIOXIDE 13 mmol/L (22-30); CHLORIDE 118 mmol/L (98-107); GLUCOSE 365 mg/dL (75-110); POTASSIUM 4.5 mmol/L (3.6-5.0)
[2019-06-14] MEDS: ASPIRIN 300 MG SUPP, RECTAL PR SCH (09:50)
[2019-06-14] MEDS: CEFTRIAXONE 2 GM/D5W RTU 2 GM/50 ML RTUPB IV SCH (09:56)
[2019-06-14] MEDS: INSULIN GLARGINE,HUM.REC.ANLOG 1,000 UNIT/10 ML VIAL SUBCUT SCH (09:57)
[2019-06-14] MEDS: NITROGLYCERIN 2.5 MG (0.1 MG/HR) PATCH.TD24 TD SCH (09:58)
[2019-06-14] MEDS: PANTOPRAZOLE SODIUM 40 MG TABLET.DR PO SCH (10:01)
[2019-06-14] MEDS: BENZTROPINE MESYLATE INJ 2 MG/2 ML AMPULE IV SCH ×2 (10:01→17:39)
[2019-06-14] MEDS ORDERED: ESMOLOL HCL/SOD CL 2,500 MG/250 ML RTUINJ IV ONE (10:16)
[2019-06-14] MEDS: NORMAL SALINE 1000 ML 1,000 ML IV PRN ×2 (10:19→22:31)
--- NOTE | 2019-06-14 10:49 | ADVANCED CARE ---
- Diagnosis (1) STEMI (ST elevation myocardial infarction) Diagnosis Current: Yes Resuscitation Status: Full Code Discussion: More than 30 minutes of discussion with the patient's family including the direct next of kin, daughter Gracy. Please see separate progress note for fur ther details. Family updated on lab findings, current working diagnosis and possible prognosis. Lots of family members are in disagreement about her CODE STATUS and further plan of care. After a lengthy discussion, daughter after considering input from other relatives and family members expressed she wants to keep the patient FULL CODE for now. She says there are many other relatives or family members traveling all over the [place] to come and visit her mother.
[2019-06-14] MEDS: ESMOLOL 2500 MG/NS 250 ML IV PRN ×2 (11:09→22:32)
--- NOTE | 2019-06-14 11:34 | PDOC PROGRESS REPORT ---
Subjective Progress Note for:: 06/14/19 Subjective:: Assumed care after patient was upgraded to the ICU. ER and hospital course reviewed. This is a highly complicated case of a 49-year-old female with a past medical history of stage III pancreatic cancer diagnosed 2 months ago at [facility] in [place]-completed 3 cycles of chemo and missed the 4th one because of intolerance to side effects, PVD, DM type II with diabetic retinopathy, right BKA, history of right-sided kidney transplant, prior multiple toe amputations and chronic opiate dependence who initially presented in the ER because of increasing epigastric pain and nausea and vomiting. In the ER, was noted that she was complaining of epigastric pain radiating to the back. Appears patient was given Dilaudid and Reglan in the ER. Reportedly, after few minutes of administering Reglan, she developed dystonic reaction and was given Benadryl and Cogentin subsequently with mild relief. Later, she developed agitation and confusion and required multiple sedatives and antipsychotics. Yesterday on the floor, patient continued to have worsening agitation. At some point she did verbalize she was hurting and was in severe pain. Troponin was ch ecked and came back significantly elevated at 8. Her EKG did show ST elevation changes on V3 and V4. Cardiology was consulted and patient was initiated on medical management for NSTEMI as she is not a candidate for TPA or cath. Due to worsening agitation, she was subsequently transferred to the ICU. She was also noted to have significant pulses with a WBC of 44. She was empirically started on antimicrobial regimen for meningitis due to the leukocytosis and acute encephalopathy. An LP and MRI were previously ordered but due to her agitation and restlessness, they were not feasible to pursue at the moment. She was also started on fentanyl patch and was any Dilaudid she is on high doses of oral opiates at home. Haldol and Ativan are also added and these seem to partially control her agitation. Overnight, patient had intermittent episodes of agitation which responded to PRN Ativan and Haldol. She appears to be maintaining her airway and is saturating well. She remains confused and occasionally groans. She is tachycardic in the 120s. Blood pressures have been stable. No fever or chills. Reason For Visit: METABOLIC TOXIC ENCEPHALOPATHY Physical Exam Vital Signs: Temp Pulse Resp BP Pulse Ox 98.5 F 110 H 26 H 164/88 H 100 06/14/19 08:00 06/14/19 08:06 06/14/19 08:00 06/14/19 08:00 06/14/19 08:00 Intake & Output 06/13/19 06/14/19 06/15/19 06:59 06:59 06:59 Intake Total 3807 1521 Output Total 3775 400 Balance 32 1521 -400 Weight 152 lb 8.958 oz General appearance: PRESENT: mild distress, thin Head exam: PRESENT: atraumatic, normocephalic Eye exam: PRESENT: conjunctiva pink, EOMI, PERRLA. ABSENT: scleral icterus Ear exam: PRESENT: normal external ear exam Mouth exam: PRESENT: moist, tongue midline Neck exam: ABSENT: carotid bruit, JVD, lymphadenopathy, thyromegaly Respiratory exam: PRESENT: rhonchi. ABSENT: rales, wheezes Cardiovascular exam: PRESENT: RRR. ABSENT: diastolic murmur, rubs, systolic murmur Pulses: PRESENT: normal dorsalis pedis pul GI/Abdominal exam: PRESENT: normal bowel sounds, soft. ABSENT: distended, guarding, mass, organolmegaly, rebound, tenderness Rectal exam: PRESENT: deferred Neurological exam: ABSENT: alert, awake, oriented to person, oriented to place, oriented to time, oriented to situation Results Laboratory Results: 06/13/19 16:43 06/14/19 08:23 06/13/19 06/13/19 06/13/19 10:04 10:04 10:04 WBC 44.5 H* RBC 3.76 Hgb 10.3 L Hct 32.9 L MCV 88 MCH 27.4 MCHC 31.4 L RDW 18.2 H Plt Count 525 H Seg Neutrophils % Not Reportable Sodium 144.9 Potassium 5.0 Chloride 113 H Carbon Dioxide 12 L Anion Gap 20 H BUN 21 H Creatinine 1.26 H Est GFR ( Amer) 54 L Glucose 377 H Lactic Acid Calcium 10.1 Total Bilirubin 0.8 AST 42 H Alkaline Phosphatase 135 H Ammonia < 8.7 L Total Protein 7.1 Albumin 3.9 06/13/19 06/13/19 06/13/19 11:06 15:09 15:09 WBC RBC Hgb Hct MCV MCH MCHC RDW Plt Count Seg Neutrophils % Sodium 145.9 H Potassium 3.1 L D Chloride 124 H Carbon Dioxide 12 L Anion Gap 10 BUN 17 Creatinine 0.84 Est GFR ( Amer) > 60 Glucose 236 H Lactic Acid 1.6 1.0 Calcium 7.2 L Total Bilirubin AST Alkaline Phosphatase Ammonia Total Protein Albumin 06/13/19 06/13/19 06/13/19 16:43 18:19 20:56 WBC 44.1 H* RBC 3.60 L Hgb 9.6 L Hct 31.0 L MCV 86 MCH 26.7 L MCHC 31.0 L RDW 18.1 H Plt Count 475 H Seg Neutrophils % Not Reportable Sodium 147.2 H 144.6 Potassium 4.2 D 4.3 Chloride 115 H 116 H Carbon Dioxide 14 L 19 L Anion Gap 18 10 BUN 21 H 21 H Creatinine 1.14 1.23 Est GFR ( Amer) > 60 56 L Glucose 296 H 260 H Lactic Acid Calcium 9.1 9.4 Total Bilirubin AST Alkaline Phosphatase Ammonia Total Protein Albumin 06/14/19 06/14/19 06/14/19 00:30 04:06 08:23 WBC RBC Hgb Hct MCV MCH MCHC RDW Plt Count Seg Neutrophils % Sodium 147.2 H 147.9 H 145.9 H Potassium 5.0 4.1 4.5 Chloride 118 H 120 H 118 H Carbon Dioxide 14 L 18 L 13 L Anion Gap 15 10 15 BUN 21 H 23 H 22 H Creatinine 1.34 H 1.33 H 1.29 H Est GFR ( Amer) 50 L 51 L 53 L Glucose 358 H 254 H 365 H Lactic Acid Calcium 9.1 9.3 9.2 Total Bilirubin AST Alkaline Phosphatase Ammonia Total Protein Albumin 06/13/19 06/13/19 06/13/19 15:09 15:09 20:56 Creatine Kinase 379 H 447 H CK-MB (CK-2) 17.60 H Troponin I 8.920 NT-Pro-B Natriuret Pep 99071 H 06/13/19 06/14/19 06/14/19 20:56 00:30 04:06 Creatine Kinase 359 H CK-MB (CK-2) 18.50 H 12.50 H Troponin I 17.200 16.200 NT-Pro-B Natriuret Pep Impressions: Abdomen/Pelvis CT 06/12/19 00:00 IMPRESSION: Fullness of the pancreatic head and body with minimal adjacent stranding, likely related to the patient's known history of pancreatic malignancy. Pancreatitis may be present. Recommend correlation with amylase and lipase. Mildly distended gallbladder. If there is concern for acute cholecystitis, an ultrasound may be useful in further evaluation. Right lower quadrant transplant kidney with no perinephric fluid collection or hydronephrosis. TECHNICAL DOCUMENTATION: Quality ID # [id number]: Final reports with documentation of one or more dose reduction techniques (e.g., Automated exposure control, adjustment of the mA and/or kV according to patient size, use of iterative reconstruction technique) copyright 2011 [employer]- All Rights Reserved Head CT 06/12/19 01:50 IMPRESSION: 1. No acute hemorrhage or mass effect. 2. Calcified lesion extending from the cribriform plate over the pituitary fossa. This is likely a calcified meningioma. Based on location could potentially affect pituitary function. MRI brain with and without contrast using pituitary protocol would provide better evaluation of this lesion and any potential mass effect on the pituitary stalk/gland. 3. Atherosclerotic plaque in the distal internal carotid arteries bilaterally 4. Coarse calcifications in both globes. Chest X-Ray 06/13/19 00:00 IMPRESSION: No acute disease. copyright 2010 [employer]- All Rights Reserved Assessment and Plan - Diagnosis (1) Acute delirium Is this a current diagnosis for this admission?: Yes Plan: Multifactorial. It appears that patient was still somewhat coherent when she came in and was complaining of worsening epigastric pain. Her epigastric pain is likely related to her advanced pancreatic cancer. However with significantly elevated troponins and pertinent EKG findings, this could also be an anginal equivalent as well. He also presented with leukocytosis and significant neutrophilia. She was started on multiple medications including benzodiazepines, opiates and antipsychotics for her pain and agitation. Her acute encephalopathy is likely multifactorial from ongoing sepsis, STEMI and medication effects. On reexamination, there is no nuchal rigidity. CT head possible meningioma. MRI has been ordered to rule out brain mets. (2) STEMI (ST elevation myocardial infarction) Qualifiers: Involved coronary artery: unspecified coronary artery Qualified Code(s): I21.3 - ST elevation (STEMI) myocardial infarction of unspecified site Is this a current diagnosis for this admission?: Yes Plan: Cardiology following. On heparin drip. Started on esmolol drip. Continue nitro patch and aspirin. (3) Diabetes type 2, uncontrolled Qualifiers: Glycemic state: with hyperglycemia Qualified Code(s): E11.65 - Type 2 diabetes mellitus with hyperglycemia Is this a current diagnosis for this admission?: Yes Plan: Continue Lantus and sliding scale. (4) Dystonic drug reaction Is this a current diagnosis for this admission?: Yes Plan: Resolved. (5) COREY (acute kidney injury) Is this a current diagnosis for this admission?: Yes (6) Pancreatic cancer Is this a current diagnosis for this admission?: Yes - Time Time Spent with patient: 35 or more minutes
[2019-06-14] MEDS ORDERED: INSULIN LISPRO 100 UNIT/ML 3 ML VIAL SUBCUT ONE (11:45)
[2019-06-14 12:40] LABS: ANION GAP 15 (5-19); BLOOD UREA NITROGEN 22 mg/dL (7-20); CALCIUM 8.9 mg/dL (8.4-10.2); CARBON DIOXIDE 14 mmol/L (22-30); CHLORIDE 116 mmol/L (98-107); GLUCOSE 391 mg/dL (75-110); POTASSIUM 4.3 mmol/L (3.6-5.0)
--- NOTE | 2019-06-14 12:41 | EKG REPORT ---
SEVERITY:- ABNORMAL ECG - SINUS TACHYCARDIA PROBABLE LEFT ATRIAL ABNORMALITY INFERIOR INFARCT, AGE INDETERMINATE CONSIDER ANTERIOR INFARCT CLINICAL CORRELATION NEEDED. : Confirmed by: Vel Stewart MD 14-Jun-2019 12:40:52
[2019-06-14 14:08] LABS: PATH REVIEW PATHOLOGIST REVIEWED
[2019-06-14] MEDS: HEPARIN SODIUM,PORCINE/D5W 25,000 UNIT/250 ML RTUINJ IV PRN (15:31)
[2019-06-14 16:59] LABS: ANION GAP 10 (5-19); BLOOD UREA NITROGEN 22 mg/dL (7-20); CARBON DIOXIDE 17 mmol/L (22-30); CHLORIDE 119 mmol/L (98-107); GLUCOSE 217 mg/dL (75-110); POTASSIUM 4.3 mmol/L (3.6-5.0)
[2019-06-14 20:14] LABS: ANION GAP 10 (5-19); BLOOD UREA NITROGEN 21 mg/dL (7-20); CARBON DIOXIDE 18 mmol/L (22-30); CHLORIDE 118 mmol/L (98-107); GLUCOSE 209 mg/dL (75-110)
--- NOTE | 2019-06-14 20:17 | Progress Note ---
Provider Note Provider Note: CARDIOLOGY PROGRESS NOTE by Dr. Joya Stone on 06/14/2019. SUBJECTIVE: The patient continues to be delirious and agitated. She is in restraints. There is no ventricular or atrial arrhythmia seen on the monitor. But the patient does have tachycardia with rates at times going to 120s to 130 bpm and the monitor showing sinus tachycardia. The patient does not appear to be short of breath. She does move all 4 extremities. PHYSICAL EXAMINATION: The patient appears to be chronically ill. She is severely agitated. Selected Entries 06/14/19 08:00 Temperature 98.5 F Temperature Core Source Pulse Rate 110 H Respiratory 26 H Rate Blood Pressure 164/88 H [Left Upper Arm ] Blood Pressure 113 Mean [Left Upper Arm] Blood Pressure Supine Position [Left Upper Arm] O2 Sat by Pulse 100 Oximetry Oxygen Delivery Nasal Cannula Method ( includes room air) Head: Is atraumatic normocephalic. EYES: Pupils are equal round regular reactive to light. ENT is negative. Neck is supple. There is no JVD. Carotids equal there is no bruits. There is no lymphadenopathy. There is no goiter. There is no accessory muscle respiration use. Trachea central. LUNGS: Is clear to auscultation percussion. HEART: S1-S2 is heard. There is tachycardia present. There is a systolic murmur left sternal border and the apex there is no rub. ABDOMEN: Soft. There is no paraspinal megaly. Bowel sounds are heard. EXTREMITIES: Femorals are diminished. There is right BKA present. Leg pulses are diminished. Femorals are diminished. There is no femoral bruits. There is no pedal edema. SOLDERER ELECTRONIC the patient moves all 4 extremities. Due to patient's is confused and agitated. PSYCHIATRIC: Not examined. Labs- All tests 24 hr 06/13/19 06/13/19 06/13/19 10:04 15:09 20:56 APTT Sodium Potassium Chloride Carbon Dioxide Anion Gap BUN Creatinine Est GFR ( Amer) Est GFR (MDRD) Non-Af Glucose POC Glucose Calcium Creatine Kinase CK-MB (CK-2) 18.50 H Troponin I 17.200 RPR NONREACTIVE Slides for Path Review PATHOLOGIST REVIEWED 06/14/19 06/14/19 06/14/19 00:30 00:30 04:06 APTT 35.3 Sodium 147.2 H 147.9 H Potassium 5.0 4.1 Chloride 118 H 120 H Carbon Dioxide 14 L 18 L Anion Gap 15 10 BUN 21 H 23 H Creatinine 1.34 H 1.33 H Est GFR ( Amer) 50 L 51 L Est GFR (MDRD) Non-Af 42 L 42 L Glucose 358 H 254 H POC Glucose Calcium 9.1 9.3 Creatine Kinase 359 H CK-MB (CK-2) Troponin I RPR Slides for Path Review 06/14/19 06/14/19 06/14/19 04:06 08:23 08:23 APTT 77.8 H D Sodium 145.9 H Potassium 4.5 Chloride 118 H Carbon Dioxide 13 L Anion Gap 15 BUN 22 H Creatinine 1.29 H Est GFR ( Amer) 53 L Est GFR (MDRD) Non-Af 44 L Glucose 365 H POC Glucose Calcium 9.2 Creatine Kinase CK-MB (CK-2) 12.50 H Troponin I 16.200 RPR Slides for Path Review 06/14/19 06/14/19 06/14/19 11:23 12:08 16:15 APTT Sodium 145.1 H 146.1 H Potassium 4.3 4.3 Chloride 116 H 119 H Carbon Dioxide 14 L 17 L Anion Gap 15 10 BUN 22 H 22 H Creatinine 1.32 H 1.20 Est GFR ( Amer) 51 L 57 L Est GFR (MDRD) Non-Af 42 L 47 L Glucose 391 H 217 H POC Glucose 425 H* Calcium 8.9 9.0 Creatine Kinase CK-MB (CK-2) Troponin I RPR Slides for Path Review 06/14/19 06/14/19 17:42 19:40 APTT Sodium 146.1 H Potassium 4.0 Chloride 118 H Carbon Dioxide 18 L Anion Gap 10 BUN 21 H Creatinine 1.21 Est GFR ( Amer) 57 L Est GFR (MDRD) Non-Af 47 L Glucose 209 H POC Glucose 293 H Calcium 9.0 Creatine Kinase CK-MB (CK-2) Troponin I RPR Slides for Path Review Abdomen/Pelvis CT 06/12/19 00:00 IMPRESSION: Fullness of the pancreatic head and body with minimal adjacent stranding, likely related to the patient's known history of pancreatic malignancy. Pancreatitis may be present. Recommend correlation with amylase and lipase. Mildly distended gallbladder. If there is concern for acute cholecystitis, an ultrasound may be useful in further evaluation. Right lower quadrant transplant kidney with no perinephric fluid collection or hydronephrosis. TECHNICAL DOCUMENTATION: Quality ID # [id number]: Final reports with documentation of one or more dose reduction techniques (e.g., Automated exposure control, adjustment of the mA and/or kV according to patient size, use of iterative reconstruction technique) copyright 2011 [employer]- All Rights Reserved Head CT 06/12/19 01:50 IMPRESSION: 1. No acute hemorrhage or mass effect. 2. Calcified lesion extending from the cribriform plate over the pituitary fossa. This is likely a calcified meningioma. Based on location could potentially affect pituitary function. MRI brain with and without contrast using pituitary protocol would provide better evaluation of this lesion and any potential mass effect on the pituitary stalk/gland. 3. Atherosclerotic plaque in the distal internal carotid arteries bilaterally 4. Coarse calcifications in both globes. Chest X-Ray 06/13/19 00:00 IMPRESSION: No acute disease. EKG: Sinus tachycardia. Probable left atrial abnormality. Old inferior NH. Recent anteroseptal infarct with evolutionary T wave changes Impression/RECOMMENDATION: 1. Acute ST elevation NH: Patient at present not a candidate for TPA or cardiac catheterization. In view of the patient's altered mental status, inability to a certain whether the patient does have chest pain or not, and the. May be beyond the TPA window of time. Also the patient appears to be septic with a white count of 40,000. Hence you the patient on full dose IV heparin. Place the patient on aspirin rectal suppository 300 mg daily, and metoprolol intravenously 2.5 mg every 6 hours [id number], and place the patient on nitrates. Patient prognosis very guarded. The fortunate thing is that the patient is not in any heart failure. And there are no arrhythmias seen. The patient's troponin is trending down. Continue nitrates. 2. Sinus Tachycardia: This is due to the patient's agitation and possible sepsis. Hence we will start the patient on esmolol drip, and stop the patient metoprolol for now. Once the patient start taking by mouth then will put patient on beta-christiano. To control the heart rate. 3. Significant leukocytosis. Suspect sepsis: Continue broad-spectrum antibiotics. Would recommend blood cultures urine cultures. 4. Altered mental status and dystonic movements? Etiology most likely delirium secondary to sepsis. 5. History of pancreatic cancer: Oncology on the case. 6. Peripheral vascular disease status post right BKA. Medications reviewed medications adjusted. Management plan and medication adjustment and medication regimen discussed with attending physician Dr. Cheek. Medical decision making is of high complexity. 40 minutes spent on this patient more than 50% of time spent in direct patient care.
[2019-06-14] MEDS: HEPARIN SOD (PORCINE) 5,000 UNIT/ML 1 ML VIAL SUBCUT SCH (20:44)
[2019-06-15] MEDS: HALOPERIDOL LACTATE INJ 5 MG/1 ML VIAL IV PRN ×3 (00:18→19:51)
[2019-06-15 01:03] LABS: ANION GAP 11 (5-19); BLOOD UREA NITROGEN 20 mg/dL (7-20); CALCIUM 8.6 mg/dL (8.4-10.2); CARBON DIOXIDE 16 mmol/L (22-30); CHLORIDE 118 mmol/L (98-107); GLUCOSE 187 mg/dL (75-110); POTASSIUM 4.1 mmol/L (3.6-5.0)
[2019-06-15] MEDS: INSULIN LISPRO 100 UNIT/ML 3 ML VIAL SUBCUT SCH ×4 (01:50→17:45)
[2019-06-15] MEDS: ACYCLOVIR SODIUM 500 MG in NORMAL SALINE 100 ML IV SCH ×2 (02:21→09:24)
[2019-06-15] MEDS: LORAZEPAM INJ 2 MG/1 ML VIAL IV PRN ×4 (03:25→23:19)
[2019-06-15] MEDS: HYDROMORPHONE HCL INJ/PF 2 MG/ML AMPULE IV PRN ×6 (03:26→21:58)
[2019-06-15 04:39] LABS: ANION GAP 7 (5-19); BLOOD UREA NITROGEN 19 mg/dL (7-20); CALCIUM 8.7 mg/dL (8.4-10.2); CARBON DIOXIDE 19 mmol/L (22-30); CHLORIDE 120 mmol/L (98-107); GLUCOSE 251 mg/dL (75-110)
[2019-06-15] MEDS: HEPARIN SOD (PORCINE) 1,000 UNIT/ML 10 ML VIAL IV PRN (04:54)
[2019-06-15] MEDS: VANCOMYCIN HCL 750 MG in DEXTROSE 5%-WATER 250 ML IV SCH (04:54)
[2019-06-15 05:06] LABS: APPEARANCE,URINE SLIGHTLY-CLOUDY; BILIRUBIN,URINE NEGATIVE (NEGATIVE); COLOR,URINE YELLOW; GLUCOSE, URINE 50 mg/dL (NEGATIVE); KETONES,URINE 20 mg/dL (NEGATIVE); LEUKOCYTE ESTERASE,URINE SMALL (NEGATIVE); NITRITE,URINE NEGATIVE (NEGATIVE); PROTEIN,URINE 30 mg/dL (NEGATIVE); URINE SPECIFIC GRAVITY 1.015; UROBILINOGEN,URINE NEGATIVE mg/dL (<2.0)
[2019-06-15 06:01] LABS: HEMATOCRIT 25.6 % (36.0-47.0); MEAN CORPUSCULAR HEMOGLOBIN 26.4 pg (27.0-33.4); MEAN CORPUSCULAR HGB CONC 30.5 g/dL (32.0-36.0); MEAN CORPUSCULAR VOLUME 86 fl (80-97); PLATELET COUNT 277 10^3/uL (150-450); RED BLOOD COUNT 2.97 10^6/uL (3.72-5.28); RED CELL DISTRIBUTION WIDTH 18.4 % (11.5-14.0); WHITE BLOOD COUNT 25.3 10^3/uL (4.0-10.5)
[2019-06-15 06:20] LABS: BASOPHILS % (MANUAL) 0 % (0-2); EOSINOPHILS % (MANUAL) 2 % (0-6); LYMPHOCYTES % (MANUAL) 8 % (13-45); MONOCYTES % (MANUAL) 8 % (3-13); SEGMENTED NEUTROPHILS % (MAN) 82 % (42-78); TOTAL CELLS COUNTED 100
[2019-06-15 06:21] LABS: ANISOCYTOSIS 2+; PLATELET COMMENT ADEQUATE; TOXIC VACUOLATION PRESENT
[2019-06-15 06:22] LABS: HEMOGLOBIN 7.8 g/dL (12.0-15.5)
[2019-06-15] MEDS: NORMAL SALINE 1000 ML 1,000 ML IV PRN ×2 (07:53→15:49)
[2019-06-15 08:56] LABS: ANION GAP 8 (5-19); BLOOD UREA NITROGEN 18 mg/dL (7-20); CALCIUM 8.6 mg/dL (8.4-10.2); CARBON DIOXIDE 19 mmol/L (22-30); CHLORIDE 118 mmol/L (98-107); GLUCOSE 170 mg/dL (75-110); POTASSIUM 3.7 mmol/L (3.6-5.0)
[2019-06-15] MEDS: NITROGLYCERIN 2.5 MG (0.1 MG/HR) PATCH.TD24 TD SCH (09:22)
[2019-06-15] MEDS: INSULIN GLARGINE,HUM.REC.ANLOG 1,000 UNIT/10 ML VIAL SUBCUT SCH (09:23)
[2019-06-15] MEDS: PANTOPRAZOLE SODIUM 40 MG TABLET.DR PO SCH (09:24)
[2019-06-15] MEDS: CEFTRIAXONE 2 GM/D5W RTU 2 GM/50 ML RTUPB IV SCH (09:24)
[2019-06-15] MEDS: ASPIRIN 300 MG SUPP, RECTAL PR SCH (09:25)
[2019-06-15] MEDS: BENZTROPINE MESYLATE INJ 2 MG/2 ML AMPULE IV SCH ×2 (09:25→17:45)
[2019-06-15 11:53] LABS: ANION GAP 11 (5-19); BLOOD UREA NITROGEN 18 mg/dL (7-20); CALCIUM 8.8 mg/dL (8.4-10.2); CARBON DIOXIDE 16 mmol/L (22-30); CHLORIDE 117 mmol/L (98-107); GLUCOSE 166 mg/dL (75-110); POTASSIUM 4.2 mmol/L (3.6-5.0)
[2019-06-15] MEDS: HEPARIN SODIUM,PORCINE/D5W 25,000 UNIT/250 ML RTUINJ IV PRN (12:06)
[2019-06-15] MEDS: ESMOLOL 2500 MG/NS 250 ML IV PRN (12:07)
--- NOTE | 2019-06-15 13:46 | EKG REPORT ---
SEVERITY:- ABNORMAL ECG - SINUS RHYTHM INFERIOR INFARCT, AGE INDETERMINATE CONSIDER ANTERIOR INFARCT : Confirmed by: Vel Stewart MD 15-Jun-2019 13:45:56
[2019-06-15 15:20] LABS: ANION GAP 8 (5-19); BLOOD UREA NITROGEN 16 mg/dL (7-20); CALCIUM 8.8 mg/dL (8.4-10.2); CARBON DIOXIDE 19 mmol/L (22-30); CHLORIDE 118 mmol/L (98-107); GLUCOSE 147 mg/dL (75-110); POTASSIUM 3.7 mmol/L (3.6-5.0)
[2019-06-15 15:25] LABS: VANCOMYCIN,TROUGH 18.5 ug/mL (5.0-20.0)
[2019-06-15] MEDS ORDERED: HEPARIN SOD (PORCINE) 1,000 UNIT/ML 10 ML VIAL IV ONE (15:30)
--- NOTE | 2019-06-15 17:00 | ADVANCED CARE ---
- Diagnosis (1) Acute delirium Diagnosis Current: Yes (2) STEMI (ST elevation myocardial infarction) Diagnosis Current: Yes (3) Diabetes type 2, uncontrolled Diagnosis Current: Yes (4) Dystonic drug reaction Diagnosis Current: Yes (5) COREY (acute kidney injury) Diagnosis Current: Yes (6) Pancreatic cancer Diagnosis Current: Yes Resuscitation Status: Full Code Discussion: Records, testing and work-up from [facility] from [place] were reviewed. Discussed case with oncologist and tonguer including recommendations. We discussed with patient's DPOA/daughter in length along with multiple family members and relatives in the room patient's current situation, lab results, diagnosis and prognosis. We addressed CODE STATUS in length again. We discussed transitioning to hospice care. Family including DPOA has expressed they are now ready to switch her to DNR/DNI and transition her to comfort measures and possible inpatient hospice. All questions and concerns from the family and relatives were answered.
--- NOTE | 2019-06-15 17:05 | PDOC PROGRESS REPORT ---
Subjective Progress Note for:: 06/15/19 Subjective:: 06/14: Assumed care after patient was upgraded to the ICU. ER and hospital course reviewed. This is a highly complicated case of a 49-year-old female with a past medical history of stage III pancreatic cancer diagnosed 2 months ago at [facility] in [place]-completed 3 cycles of chemo and missed the 4th one because of intolerance to side effects, PVD, DM type II with diabetic retinopathy, right BKA, history of right-sided kidney transplant, prior multiple toe amputations and chronic opiate dependence who initially presented in the ER because of increasing epigastric pain and nausea and vomiting. In the ER, was noted that she was complaining of epigastric pain radiating to the back. Appears patient was given Dilaudid and Reglan in the ER. Reportedly, after few minutes of administering Reglan, she developed dystonic reaction and was given Benadryl and Cogentin subsequently with mild relief. Later, she developed agitation and confusion and required multiple sedatives and antipsychotics. Yesterday on the floor, patient continued to have worsening agitation. At some point she did verbalize she was hurting and was in severe pain. Troponin was checked and came back significantly elevated at 8. Her EKG did show ST elevation changes on V3 and V4. Cardiology was consulted and patient was initiated on medical management for NSTEMI as she is not a candidate for TPA or cath. Due to worsening agitation, she was subsequently transferred to the ICU. She was also noted to have significant pulses with a WBC of 44. She was empirically started on antimicrobial regimen for meningitis due to the leukocytosis and acute encephalopathy. An LP and MRI were previously ordered but due to her agitation and restlessness, they were not feasible to pursue at the moment. She was also started on fentanyl patch and was any Dilaudid she is on high doses of oral opiates at home. Haldol and Ativan are also added and these seem to partially control her agitation. Overnight, patient had intermittent episodes of agitation which responded to PRN Ativan and Haldol. She appears to be maintaining her airway and is saturating well. She remains confused and occasionally groans. She is tachycardic in the 120s. Blood pressures have been stable. No fever or chills. 06/15: Patient had few episodes of agitation overnight which responded to Haldol and Ativan. Throughout the day, her agitation has slightly improved and she was more alert and oriented to person by the afternoon but still appears slightly lethargic. She is still complaining of abdominal pain. Discussed assessment and prognosis with family in length. Please see ACP note. Will transition patient to comfort measures and possible inpatient hospice. She will now be a DNR/DNI. Reason For Visit: METABOLIC TOXIC ENCEPHALOPATHY Physical Exam Vital Signs: Temp Pulse Resp BP Pulse Ox 100.0 F 86 17 135/62 H 100 06/15/19 14:00 06/15/19 14:00 06/15/19 14:42 06/15/19 14:42 06/15/19 14:42 Intake & Output 06/14/19 06/15/19 06/16/19 06:59 06:59 06:59 Intake Total 2521 4537 744 Output Total 2210 675 Balance 2521 2327 69 Weight 157 lb 3.033 oz General appearance: PRESENT: mild distress, thin Head exam: PRESENT: atraumatic, normocephalic Eye exam: PRESENT: conjunctiva pink, EOMI, PERRLA. ABSENT: scleral icterus Ear exam: PRESENT: normal external ear exam Mouth exam: PRESENT: moist, tongue midline Neck exam: ABSENT: carotid bruit, JVD, lymphadenopathy, thyromegaly Respiratory exam: PRESENT: clear to auscultation cecile. ABSENT: rales, rhonchi, wheezes Cardiovascular exam: PRESENT: RRR. ABSENT: diastolic murmur, rubs, systolic murmur Pulses: PRESENT: normal dorsalis pedis pul GI/Abdominal exam: PRESENT: normal bowel sounds, soft. ABSENT: distended, guarding, mass, organolmegaly, rebound, tenderness Rectal exam: PRESENT: deferred Neurological exam: PRESENT: altered, oriented to person Results Laboratory Results: 06/15/19 03:53 06/15/19 14:53 06/14/19 06/14/19 06/15/19 16:15 19:40 00:34 WBC RBC Hgb Hct MCV MCH MCHC RDW Plt Count Seg Neutrophils % Sodium 146.1 H 146.1 H 144.6 Potassium 4.3 4.0 4.1 Chloride 119 H 118 H 118 H Carbon Dioxide 17 L 18 L 16 L Anion Gap 10 10 11 BUN 22 H 21 H 20 Creatinine 1.20 1.21 1.13 Est GFR ( Amer) 57 L 57 L > 60 Glucose 217 H 209 H 187 H Calcium 9.0 9.0 8.6 Urine Color Urine Appearance Urine pH Ur Specific Frederick Urine Protein Urine Glucose (UA) Urine Ketones Urine Blood Urine Nitrite Ur Leukocyte Esterase Urine WBC (Auto) Urine RBC (Auto) 06/15/19 06/15/19 06/15/19 03:53 03:53 04:45 WBC 25.3 H RBC 2.97 L Hgb 7.8 L Hct 25.6 L MCV 86 MCH 26.4 L MCHC 30.5 L RDW 18.4 H Plt Count 277 Seg Neutrophils % Not Reportable Sodium 146.4 H Potassium 4.0 Chloride 120 H Carbon Dioxide 19 L Anion Gap 7 BUN 19 Creatinine 1.17 Est GFR ( Amer) 59 L Glucose 251 H Calcium 8.7 Urine Color YELLOW Urine Appearance SLIGHTLY-CLOUDY Urine pH 5.0 Ur Specific Frederick 1.015 Urine Protein 30 H Urine Glucose (UA) 50 H Urine Ketones 20 H Urine Blood MODERATE H Urine Nitrite NEGATIVE Ur Leukocyte Esterase SMALL H Urine WBC (Auto) 14 Urine RBC (Auto) 06/15/19 06/15/19 06/15/19 08:26 11:20 14:53 WBC RBC Hgb Hct MCV MCH MCHC RDW Plt Count Seg Neutrophils % Sodium 145.0 143.9 145.1 H Potassium 3.7 4.2 3.7 Chloride 118 H 117 H 118 H Carbon Dioxide 19 L 16 L 19 L Anion Gap 8 11 8 BUN 18 18 16 Creatinine 1.12 1.00 1.07 Est GFR ( Amer) > 60 > 60 > 60 Glucose 170 H 166 H 147 H Calcium 8.6 8.8 8.8 Urine Color Urine Appearance Urine pH Ur Specific Frederick Urine Protein Urine Glucose (UA) Urine Ketones Urine Blood Urine Nitrite Ur Leukocyte Esterase Urine WBC (Auto) Urine RBC (Auto) 06/13/19 06/13/19 06/13/19 15:09 15:09 20:56 Creatine Kinase 379 H 447 H CK-MB (CK-2) 17.60 H Troponin I 8.920 NT-Pro-B Natriuret Pep 18955 H 06/13/19 06/14/19 06/14/19 20:56 00:30 04:06 Creatine Kinase 359 H CK-MB (CK-2) 18.50 H 12.50 H Troponin I 17.200 16.200 NT-Pro-B Natriuret Pep 06/15/19 11:20 Creatine Kinase CK-MB (CK-2) Troponin I 7.080 NT-Pro-B Natriuret Pep Impressions: Abdomen/Pelvis CT 06/12/19 00:00 IMPRESSION: Fullness of the pancreatic head and body with minimal adjacent stranding, likely related to the patient's known history of pancreatic malignancy. Pancreatitis may be present. Recommend correlation with amylase and lipase. Mildly distended gallbladder. If there is concern for acute cholecystitis, an ultrasound may be useful in further evaluation. Right lower quadrant transplant kidney with no perinephric fluid collection or hydronephrosis. TECHNICAL DOCUMENTATION: Quality ID # 436: Final reports with documentation of one or more dose reduction techniques (e.g., Automated exposure control, adjustment of the mA and/or kV according to patient size, use of iterative reconstruction technique) copyright 2010 [employer]- All Rights Reserved Head CT 06/12/19 01:50 IMPRESSION: 1. No acute hemorrhage or mass effect. 2. Calcified lesion extending from the cribriform plate over the pituitary fossa. This is likely a calcified meningioma. Based on location could potentially affect pituitary function. MRI brain with and without contrast using pituitary protocol would provide better evaluation of this lesion and any potential mass effect on the pituitary stalk/gland. 3. Atherosclerotic plaque in the distal internal carotid arteries bilaterally 4. Coarse calcifications in both globes. Chest X-Ray 06/13/19 00:00 IMPRESSION: No acute disease. copyright 2010 [employer]- All Rights Reserved Assessment and Plan - Diagnosis (1) Acute delirium Is this a current diagnosis for this admission?: Yes Plan: Multifactorial. It appears that patient was still somewhat coherent when she came in and was complaining of worsening epigastric pain. Her epigastric pain is likely related to her advanced pancreatic cancer. However with significantly elevated troponins and pertinent EKG findings, this could also be an anginal equivalent as well. He also presented with leukoc ytosis and significant neutrophilia. She was started on multiple medications including benzodiazepines, opiates and antipsychotics for her pain and agitation. Her acute encephalopathy is likely multifactorial from ongoing sepsis, STEMI and medication effects. On reexamination, there is no nuchal rigidity. CT head possible meningioma. MRI has been ordered to rule out brain mets. 06/15: Slightly improved. She will be transitioned to comfort measures. (2) STEMI (ST elevation myocardial infarction) Qualifiers: Involved coronary artery: unspecified coronary artery Qualified Code(s): I21.3 - ST elevation (STEMI) myocardial infarction of unspecified site Is this a current diagnosis for this admission?: Yes Plan: Cardiology following. On heparin drip and esmolol drip. On nitro patch and aspirin. (3) Diabetes type 2, uncontrolled Qualifiers: Glycemic state: with hyperglycemia Qualified Code(s): E11.65 - Type 2 diabetes mellitus with hyperglycemia Is this a current diagnosis for this admission?: Yes Plan: Continue Lantus and sliding scale. (4) Dystonic drug reaction Is this a current diagnosis for this admission?: Yes Plan: Resolved. (5) COREY (acute kidney injury) Is this a current diagnosis for this admission?: Yes Plan: Improved. (6) Pancreatic cancer Is this a current diagnosis for this admission?: Yes Plan: Will be transitioned to comfort measures.
--- NOTE | 2019-06-15 19:50 | Progress Note ---
Provider Note Provider Note: CARDIOLOGY NOTE: The patient has been made a DNR/DNI and is being transitioned to comfort care measures only. Hence will sign off.
[2019-06-16] MEDS: HYDROMORPHONE HCL INJ/PF 2 MG/ML AMPULE IV PRN (00:55)
[2019-06-16] MEDS ORDERED: HYDROMORPHONE HCL INJ/PF 2 MG/ML AMPULE IV PRN (02:18)
[2019-06-16 03:21] LABS: ANION GAP 11 (5-19); BLOOD UREA NITROGEN 16 mg/dL (7-20); CARBON DIOXIDE 20 mmol/L (22-30); CHLORIDE 116 mmol/L (98-107); GLUCOSE 202 mg/dL (75-110); POTASSIUM 3.8 mmol/L (3.6-5.0)
[2019-06-16] MEDS: LORAZEPAM INJ 2 MG/1 ML VIAL IV PRN (04:32)
[2019-06-16] MEDS ORDERED: FENTANYL 100 MCG/HR PATCH.TD72 TD SCH (10:00)
[2019-06-16 14:49] VITALS: BP 139/34
--- NOTE | 2019-06-17 17:17 | PDOC DISCHARGE SUMMARY ---
General - Admit/Disc Date/PCP Admission Date/Primary Care Provider: 06/12/19 13:17 Discharge Date: 06/17/19 - Discharge Diagnosis (1) Acute delirium Is this a current diagnosis for this admission?: Yes (2) STEMI (ST elevation myocardial infarction) Is this a current diagnosis for this admission?: Yes (3) Diabetes type 2, uncontrolled Is this a current diagnosis for this admission?: Yes (4) Dystonic drug reaction Is this a current diagnosis for this admission?: Yes (5) COREY (acute kidney injury) Is this a current diagnosis for this admission?: Yes (6) Pancreatic cancer Is this a current diagnosis for this admission?: Yes - Additional Information Resuscitation Status: Full Code Discharge Diet: As Tolerated Discharge Activity: Activity As Tolerated Prescriptions: Hydromorphone HCl [Dilaudid 2 mg Tablet] 2 mg PO Q4HP PRN #20 tablet PRN Reason: Fentanyl [Duragesic 100 Mcg/Hr Transdermal Patch] 1 patch TD Q3D #4 patch.td72 Atorvastatin Calcium [Lipitor 40 mg Tablet] 40 mg PO QHS #30 tablet Metoprolol Tartrate [Lopressor 25 mg Tablet] 12.5 mg PO Q12 #30 tab Clopidogrel Bisulfate [Plavix 75 mg Tablet] 75 mg PO DAILY #30 tablet Home Medications: Aspirin [Adult Low Dose Aspirin EC] 81 mg PO QHS 06/12/19 Lipase/Protease/Amylase [Creon Dr 36,000 Units Capsule] 1 each PO AC 06/12/19 Pantoprazole Sodium [Protonix [address] Tablet] 40 mg PO DAILY 06/12/19 Prednisone [Deltasone 5 mg Tablet] 5 mg PO QAM 06/12/19 Pregabalin [Lyrica 25 mg Capsule] 25 mg PO Q12 06/12/19 Sennosides [Senna] 8.6 mg PO DAILY 06/12/19 Tacrolimus [Prograf] 3 mg PO Q12 06/12/19 Atorvastatin Calcium [Lipitor 40 mg Tablet] 40 mg PO QHS #30 tablet 06/16/19 Clopidogrel Bisulfate [Plavix 75 mg Tablet] 75 mg PO DAILY #30 tablet 06/16/19 Fentanyl [Duragesic 100 Mcg/Hr Transdermal Patch] 1 patch TD Q3D #4 patch.td72 06/16/19 Hydromorphone HCl [Dilaudid 2 mg Tablet] 2 mg PO Q4HP PRN #20 tablet 06/16/19 Metoprolol Tartrate [Lopressor 25 mg Tablet] 12.5 mg PO Q12 #30 tab 06/16/19 History of Present Illness History of Present Illness: Admitting hospitalist's H&P: NISHA CLARKE is a 49 year old female who presented to the emergency room with acutely worsening abdominal pain. Patient admits having chronic abdominal pain secondary to pancreatic cancer which was diagnosed 2 months ago. Her pain has worsened acutely since leaving her home in the [place] and coming to the [facility] on vacation and forgetting her short acting pain medication at home. She normally takes OxyContin 80 mg 3 times daily and oxycodone IR 30 mg 3 times a day but she has had no IR formulation available to her for the last 5 days and only took 1 dose of her OxyContin yesterday. Therefore yesterday afternoon she developed gradually worsening abdominal pain and nausea with vomiting x1. She describes the pain as a severe, constant deep gripping/aching upper abdominal pain radiating through to her back. With these symptoms she presented to the emergency room for evaluation and treatment. In the emergency room patient was treated with IV fluid and was given Dilaudid as well as Zofran for pain and nausea. She responded well to treatment initially but over time asked for more pain medication. She was given another dose of Dilaudid but was given Reglan 5 mg IV instead of Zofran. Within a few minutes of receiving Reglan she developed a dystonic reaction and has not recovered from the dystonic reaction since that time although it was slightly improved by the administration of Benadryl. Her ER evaluation revealed a mildly elevated serum potassium, hyperglycemia mildly elevated renal functions. Because the patient has not responded well to attempts at resolving her dystonic reaction the hospital service is been asked to admit patient for further treatment. Hospital Course Hospital Course: 06/14: Assumed care after patient was upgraded to the ICU. ER and hospital course reviewed. This is a complicated case of a 49-year-old female with a past medical history of stage III pancreatic cancer diagnosed 2 months ago at [facility] in [place]-completed 3 cycles of chemo and missed the 4th one because of intolerance to side effects, PVD, DM type II with diabetic retinopathy, right BKA, history of right-sided kidney transplant, prior multiple toe amputations and chronic opiate dependence who initially presented in the ER because of increasing epigastric pain and nausea and vomiting. In the ER, was noted that she was complaining of epigastric pain radiating to the back. Appears patient was given Dilaudid and Reglan in the ER. Reportedly, after few minutes of administering Reglan, she developed dystonic reaction and was given Benadryl and Cogentin subsequently with mild relief. Later, she developed agitation and confusion and required multiple sedatives and antipsychotics. Yesterday on the floor, patient continued to have worsening agitation. At some point she did verbalize she was hurting and was in severe pain. Troponin was checked and came back significantly elevated at 8. Her EKG did show ST elevation changes on V3 and V4. Cardiology was consulted and patient was initiated on medical management for NSTEMI as she is not a candidate for TPA or cath. Due to worsening agitation, she was subsequently transferred to the ICU. She was also noted to have significant pulses with a WBC of 44. She was empirically started on antimicrobial regimen for meningitis due to the leukocytosis and acute encephalopathy. An LP and MRI were previously ordered but due to her agitation and restlessness, they were not feasible to pursue at the moment. She was also started on fentanyl patch and was on Dilaudid she is on high doses of oral opiates at home. Haldol and Ativan are also added and these seem to partially control her agitation. Overnight, patient had intermittent episodes of agitation which responded to PRN Ativan and Haldol. She appears to be maintaining her airway and is saturating well. She remains confused and occasionally groans. She is tachycardic in the 120s. Blood pressures have been stable. No fever or chills. 06/15: Patient had few episodes of agitation overnight which responded to Haldol and Ativan. Throughout the day, her agitation has slightly improved and she was more alert and oriented to person by the afternoon but still appears slightly lethargic. She is still complaining of abdominal pain. Discussed assessment and prognosis with family in length. Please see ACP note. Will transition patient to comfort measures and possible inpatient hospice. She will now be a DNR/DNI. 06/16: Patient's mentation did improve. She became oriented and returned to her baseline. Her acute encephalopathy was likely a combination of severe intractable abdominal pain, STEMI and side effects from medications including the pain medications, sedation and antipsychotics she required. Plan was for her to go for inpatient hospice however patient said that she prefers to go home under hospice. We rediscussed this again in length with the family including the daughter who expressed they would prefer for her to go home under hospice instead. Physical Exam Vital Signs: Temp Pulse Resp BP Pulse Ox 98.3 F 92 22 H 139/34 H 100 06/16/19 14:46 06/16/19 14:46 06/16/19 14:46 06/16/19 14:46 06/16/19 14:46 Intake & Output 06/16/19 06/17/19 06/18/19 06:59 06:59 06:59 Intake Total 2999 120 Output Total 1625 1900 Balance 1374 -1780 Weight 156 lb 15.506 oz General appearance: PRESENT: no acute distress, well-developed, well-nourished Head exam: PRESENT: atraumatic, normocephalic Eye exam: PRESENT: conjunctiva pink, EOMI, PERRLA. ABSENT: scleral icterus Ear exam: PRESENT: normal external ear exam Mouth exam: PRESENT: moist, tongue midline Neck exam: ABSENT: carotid bruit, JVD, lymphadenopathy, thyromegaly Respiratory exam: PRESENT: clear to auscultation cecile. ABSENT: rales, rhonchi, wheezes Cardiovascular exam: PRESENT: RRR. ABSENT: diastolic murmur, rubs, systolic murmur Pulses: PRESENT: normal dorsalis pedis pul GI/Abdominal exam: PRESENT: normal bowel sounds, soft. ABSENT: distended, guarding, mass, organolmegaly, rebound, tenderness Rectal exam: PRESENT: deferred Neurological exam: PRESENT: alert, awake, oriented to person, oriented to place, oriented to time, CN II-XII grossly intact. ABSENT: motor sensory deficit Results Laboratory Results: 06/15/19 03:53 06/16/19 02:47 06/15/19 04:45 Catheterized Urine Urine Culture - Final NO GROWTH 2 DAYS 06/12/19 07:33 Blood Blood Culture - Final NO GROWTH IN 5 DAYS 06/12/19 07:25 Blood Blood Culture - Final NO GROWTH IN 5 DAYS 06/13/19 06/13/19 06/13/19 15:09 15:09 20:56 Creatine Kinase 379 H 447 H CK-MB (CK-2) 17.60 H Troponin I 8.920 NT-Pro-B Natriuret Pep 17719 H 06/13/19 06/14/19 06/14/19 20:56 00:30 04:06 Creatine Kinase 359 H CK-MB (CK-2) 18.50 H 12.50 H Troponin I 17.200 16.200 NT-Pro-B Natriuret Pep 06/15/19 11:20 Creatine Kinase CK-MB (CK-2) Troponin I 7.080 NT-Pro-B Natriuret Pep Impressions: Abdomen/Pelvis CT 06/12/19 00:00 IMPRESSION: Fullness of the pancreatic head and body with minimal adjacent stranding, likely related to the patient's known history of pancreatic malignancy. Pancreatitis may be present. Recommend correlation with amylase and lipase. Mildly distended gallbladder. If there is concern for acute cholecystitis, an ultrasound may be useful in further evaluation. Right lower quadrant transplant kidney with no perinephric fluid collection or hydronephrosis. TECHNICAL DOCUMENTATION: Quality ID # [id number]: Final reports with documentation of one or more dose reduction techniques (e.g., Automated exposure control, adjustment of the mA and/or kV according to patient size, use of iterative reconstruction technique) copyright 2010 [employer]- All Rights Reserved Head CT 06/12/19 01:50 IMPRESSION: 1. No acute hemorrhage or mass effect. 2. Calcified lesion extending from the cribriform plate over the pituitary fossa. This is likely a calcified meningioma. Based on location could potentially affect pituitary function. MRI brain with and without contrast using pituitary protocol would provide better evaluation of this lesion and any potential mass effect on the pituitary stalk/gland. 3. Atherosclerotic plaque in the distal internal carotid arteries bilaterally 4. Coarse calcifications in both globes. Chest X-Ray 06/13/19 00:00 IMPRESSION: No acute disease. copyright 2010 [employer]- All Rights Reserved Qualifiers - * PATIENT BEING DISCHARGED WITH ANY OF THE FOLLOWING DIAGNOSIS: No Acute Heart Failure - Is this a Heart Failure Patient?: No
== END 2019-06-16 15:41 | disposition hospice, home (50) | DRG 91 ==
LOC: ER 19:29 → EH 06-12 05:10 → 3S 06-12 06:49 → OBSVTOIN 06-12 13:17 → ICU 06-13 16:53 → 4S 06-16 00:50
PROVIDERS: ADMIT Emergency Medicine; ATTEND Emergency Medicine
DX: G92 Toxic encephalopathy (principal); I21.3 ST elevation (STEMI) myocardial infarction of unspecified site; F11.23 Opioid dependence with withdrawal; C25.0 Malignant neoplasm of head of pancreas; Z94.0 Kidney transplant status; N17.9 Acute kidney failure, unspecified; E11.65 Type 2 diabetes mellitus with hyperglycemia; E11.319 Type 2 diabetes mellitus with unspecified diabetic retinopathy without macular edema; Y92.230 Patient room in hospital as the place of occurrence of the external cause; Z51.5 Encounter for palliative care; R25.8 Other abnormal involuntary movements; T45.0X6A Underdosing of antiallergic and antiemetic drugs, initial encounter; T45.0X5A Adverse effect of antiallergic and antiemetic drugs, initial encounter; Z91.138 Patient's unintentional underdosing of medication regimen for other reason; H54.8 Legal blindness, as defined in USA; T43.505A Adverse effect of unspecified antipsychotics and neuroleptics, initial encounter; E11.51 Type 2 diabetes mellitus with diabetic peripheral angiopathy without gangrene; E86.0 Dehydration; E87.5 Hyperkalemia; Z89.511 Acquired absence of right leg below knee; Z89.422 Acquired absence of other left toe(s); Z78.1 Physical restraint status; D72.829 Elevated white blood cell count, unspecified; Z79.899 Other long term (current) drug therapy; Z66 Do not resuscitate; G89.3 Neoplasm related pain (acute) (chronic); F17.200 Nicotine dependence, unspecified, uncomplicated; Z97.13 Presence of artificial right leg (complete) (partial)
CPT/HCPCS: 36415; 36600; 70450; 71045; 74176; 80048; 80053; 80202; 81001; 82140; 82150; 82550; 82553; 82803; 82962; 83605; 83690; 83880; 84484; 85025; 85610; 85730; 86592; 86695; 86701; 87040; 87086; 93005; 93010; 96361; 96372; 96374; 96375; 96376; 99291; G0378; J0133; J0360; J0515; J0696; J1170; J1200; J1630; J1644; J1815; J2060; J2270; J2765; J3360; J3370; J3480; J3490; J7030; J7050; J7060; S0028